=== PATIENT | male | born 1930 | race Caucasian/White ===

== ENCOUNTER 2017-03-15 12:14 | Inpatient (IN) | payer MEDICARE ==
[~2017-03-15] VITALS: Ht 177.8 cm; Wt 105.2 kg
[~2017-03-15 12:14] MED LIST: CATAPRES0.2 MG PO; CIPRO250 M1 PO; HYDROCHLOROTH12.5 M1 PO; LISINOPRIL; MINIPRIN81 MG PO; PRINIVIL20 MG PO; ULTRAM 50MG TAB50 MG PO; ZANTAC 150MG T150 M1 PO
[2017-03-15 12:21] VITALS: BP 189/89
[2017-03-15] MEDS ORDERED: LASIX 20 MG TAB20 MG PO (12:25)
[2017-03-15] MEDS ORDERED: COREG6.25 MG PO (12:25)
[2017-03-15] MEDS ORDERED: TURMERIC COMPL1 EACH PO (12:26)
[2017-03-15] MEDS ORDERED: HYDRALAZINE 2525 MG PO (12:26)
[2017-03-15] MEDS ORDERED: CENTRUM SILVER1 EAC4 PO (12:26)
[2017-03-15] MEDS ORDERED: ASPIRIN81 M2 PO (12:27)
[2017-03-15] MEDS ORDERED: VITAMIN D2000 UNI2 PO (12:27)
[2017-03-15 12:41] LABS: ABSOLUTE BASOPHILS 0.1 thou/uL (0.0-0.2); ABSOLUTE EOSINOPHILS 0.6 thou/uL (0.0-0.7); ABSOLUTE LYMPHOCYTES 5.6 thou/uL (0.8-5.3); ABSOLUTE MONOCYTES 1.1 thou/uL (0.0-1.2); ABSOLUTE NEUTROPHILS 6.6 thou/uL (1.6-8.1); BASOPHILS 0.7 %; HEMATOCRIT 40.6 % (42.0-52.0); HEMOGLOBIN 13.3 gm/dL (14.0-18.0); MCH 29.4 pg (26.0-34.0); MCHC 32.8 g/dL (28.0-37.0); MCV 89.7 fL (80.0-100.0); MONOCYTES 7.7 %; MPV 9.1 fl. (7.2-11.1); NUCLEATED RBCS 0 /100WBC; PLATELET COUNT* 179 thou/uL (150-400); POLYS 47.6 %; RBC 4.53 mil/uL (4.50-6.00); RDW-CV 14.4 % (10.5-14.5)
[2017-03-15 12:50] LABS: ANION GAP 11 mmol/L (7-16); BUN 23 mg/dL (7-18); CALCIUM 8.8 mg/dL (8.5-10.1); CHLORIDE 101 mmol/L (98-107); CO2 25 mmol/L (21-32); CREATININE 1.3 mg/dL (0.6-1.3); GLUCOSE 114 mg/dL (70-99); POTASSIUM 4.2 mmol/L (3.5-5.1); SODIUM 137 mmol/L (136-145)
[2017-03-15 12:53] LABS: APTT 23.2 Seconds (25.0-31.3); PROTIME 9.9 Seconds (9.20-11.50)
[2017-03-15 13:09] LABS: ALKALINE PHOSPHATASE 88 U/L (46-116); CK-MB MASS 2.5 ng/mL (<0.5-3.6); LIPASE 266 U/L (73-393); MAGNESIUM 1.8 mg/dL (1.8-2.4); NT-PRO BRAIN NAT PEPTIDE 732 pg/mL (<300); SGOT 25 U/L (15-37); SGPT 35 U/L (30-65); TOTAL BILIRUBIN 0.6 mg/dL (<0.1-1.0); TOTAL PROTEIN 7.3 g/dL (6.4-8.2); TROPONIN-I LEVEL <0.06 ng/mL (<0.06)
[2017-03-15 14:00] VITALS: BP 175/73
[2017-03-15 15:27] VITALS: BP 163/91
[2017-03-15 17:30] VITALS: BP 149/67
--- NOTE | 2017-03-15 19:48 | NUR ---
pt arrived to room 222 at approx 1600. pt tracing sb on tele monitor. BP elevated, all other vss. Pt denies chest pain. home meds restarted. pt on 2l o2, was taken off for a short time and sat was low 90's. pt placed back on 2l. lungs wheezy , pt given dose of lasix. pt a/o x4, very AMBLER. up ad pearl in room. uses cane at home. pt uses call light approprialty. report given to Rajan THAYER.
[2017-03-15 20:00] VITALS: BP 142/58
[2017-03-16] VITALS: BP 150/63
[2017-03-16 00:33] LABS: HEMATOCRIT 40.8 % (42.0-52.0); HEMOGLOBIN 13.2 gm/dL (14.0-18.0); MCH 29.4 pg (26.0-34.0); MCHC 32.5 g/dL (28.0-37.0); MCV 90.6 fL (80.0-100.0); MPV 8.9 fl. (7.2-11.1); RBC 4.5 mil/uL (4.50-6.00); RDW-CV 14.3 % (10.5-14.5); WBC 14.1 thou/uL (4.0-11.0)
[2017-03-16 01:05] LABS: ANION GAP 9 mmol/L (7-16); BUN 21 mg/dL (7-18); CALCIUM 8.9 mg/dL (8.5-10.1); CHLORIDE 100 mmol/L (98-107); CO2 29 mmol/L (21-32); CREATININE 1.4 mg/dL (0.6-1.3); GLUCOSE 159 mg/dL (70-99); MAGNESIUM 1.7 mg/dL (1.8-2.4); POTASSIUM 4.2 mmol/L (3.5-5.1); SODIUM 138 mmol/L (136-145); TROPONIN-I LEVEL <0.06 ng/mL (<0.06)
--- NOTE | 2017-03-16 03:14 | NUR ---
RESTING THROUGHOUT NIGHT. CONT. TO BERNADINE IN 40S ON MONITOR. DR AWARE. CONT. TO MONITOR RESP STATUS. DENIES ANY COMPLAINTS OF PAIN OR DISCOMFORT, NO SIGN OF DISTRESS AT THIS TIME. BED IN LOW POSITION, CALL LIIGHT WITHIN REACH. BED ALARM ON. WILL CONT. WITH CURRENT PLAN OF CARE AT THIS TIME.
[2017-03-16 04:00] VITALS: BP 137/65
[2017-03-16 08:00] VITALS: BP 163/80
--- NOTE | 2017-03-16 11:49 | EKG ---
[place] [address] ELECTROCARDIOGRAM REPORT Name: DONNAAZIZA Lan Room: [address] ADM IN .R.#: [id number] Admission: 03/15/17 Attend Phys: Matt Gallegos, Discharge: Date of : [birth year] Report #: [id number] THIS REPORT FOR: //name// 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 CEBALLOS : 1930 Requested By: Umesh Guardado Order Number: [id number] MD: Asa Rene Measurements Intervals [place] Rate: 50 P: -6 DC: 165 QRS: -54 QRSD: 144 T: 2 QT: 493 QTc: 450 Interpretive Statements Sinus rhythm RBBB and LAFB Compared to ECG 03/17/2016 16:32:37 Sinus arrhythmia no longer present Short DC interval no longer present Electronically Signed On 03-16-2017 11:48:46 CLEANING PROFESSIONAL by Asa Rene [email or web address] <ELECTRONICALLY SIGNED> By: Asa Rene MD, [facility] 03/16/17 1148 1219 1219 Asa Rene MD, [facility] /EPI
--- NOTE | 2017-03-16 11:51 | EKG ---
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25 : 1930 Requested By: Umesh Guardado Order Number: [id number] Reading MD: Asa Rene Measurements Intervals [place] Rate: 49 P: 47 LA: 175 QRS: -59 QRSD: 144 T: -20 QT: 600 QTc: 542 Interpretive Statements Sinus bradycardia RBBB and LAFB Compared to ECG 03/17/2016 16:32:37 Sinus arrhythmia no longer present Short LA interval no longer present Electronically Signed On 03-16-2017 11:51:13 SALAD CHEF by Asa Rene [email or web address] <ELECTRONICALLY SIGNED> By: Asa Rene MD, [facility] 03/16/17 1151 0902 0902 Asa Rene MD, [facility] /EPI
--- NOTE | 2017-03-16 11:59 | NUR ---
ASSUMED PT CARE AT 0730, FULL ASSESMENT DONE CHARTED. PT A/O X4, DENIES CHEST PAIN, ON 2L O2 SATS MID 90'S, PT TOOK 02 OFF TO AMBULATE AND DROPPED TO 91%, PT PLACED BACK ON 2L, LUNGS DIM/COURSE. PTS BP 163/80, HR IN THE 40'S. COREG HELD. ALL OTHER VSS, SB ON THE MONITOR. FALL PRECATUIONS IN PLACE, WILL CONTINUE WITH PLAN OF CARE.
[2017-03-16 12:23] VITALS: BP 144/54
[2017-03-16 16:13] VITALS: BP 128/49
[2017-03-16 20:00] VITALS: BP 140/70
[2017-03-17] VITALS (17 sets, daily range): BP systolic 140–179; BP diastolic 58–93
--- NOTE | 2017-03-17 03:46 | NUR ---
RESTING THROUGHOUT NIGHT. DENIES COMPLAINTS OF PAIN OR DISCOMFORT. NO SIGN OF DISTRESS. CONT. SR ON MONITOR. WILL PROCEED WITH PLAN OF CARE AT THIS TIME.
[2017-03-17 04:40] LABS: HEMATOCRIT 38.6 % (42.0-52.0); HEMOGLOBIN 12.7 gm/dL (14.0-18.0); MCH 29.4 pg (26.0-34.0); MCHC 32.8 g/dL (28.0-37.0); MCV 89.7 fL (80.0-100.0); MPV 10.1 fl. (7.2-11.1); RBC 4.31 mil/uL (4.50-6.00); RDW-CV 14.4 % (10.5-14.5)
[2017-03-17 05:26] LABS: ANION GAP 10 mmol/L (7-16); BUN 41 mg/dL (7-18); CALCIUM 8.7 mg/dL (8.5-10.1); CHLORIDE 101 mmol/L (98-107); CO2 28 mmol/L (21-32); CREATININE 1.8 mg/dL (0.6-1.3); GLUCOSE 156 mg/dL (70-99); NT-PRO BRAIN NAT PEPTIDE 1384 pg/mL (<300); POTASSIUM 4.1 mmol/L (3.5-5.1); SODIUM 139 mmol/L (136-145); TROPONIN-I LEVEL <0.06 ng/mL (<0.06)
--- NOTE | 2017-03-17 13:59 | 2DMMODE ---
[place] [address] 2 D/M-MODE ECHOCARDIOGRAM Name: AZIZA THOMPSON Room: [address] IN [facility]#: [id number] Admission: 03/15/17 Attend Phys: Matt Tolentino Discharge: Date of : [birth year] Date of Service: 03/17/17 1358 Report #: [id number] THIS REPORT FOR: //name// APPROVED REPORT Study performed: 03/17/2017 10:42:59 EXAM: Comprehensive 2D, Doppler, and color-flow Echocardiogram Patient Location: In-Patient Room #: 222 Status: routine BSA: 2.18 HR: 50 bpm BP: 152/72 mmHg Other Information Study Quality: Good Indications Chest Pain 2D Dimensions LVEF(%): 70.07 (>50%) IVSd: 13.83 (7-11mm) LVOT Diam: 20.92 (18-24mm) LVDd: 46.60 mm PWd: 11.87 (7-11mm) Ascending Ao: 31.45 (22-36mm) LVDs: 28.18 (25-40mm) Aortic Root: 30.31 mm Hanson's LVEF: 70.07 % Volumes Left Atrial Volume (Systole) LA ESV Index: 37.00 mL/m2 Aortic Valve AoV Peak Aki.: 3.85 m/s AO Peak Gr.: 59.29 mmHg LVOT Max P.45 mmHg AO Mean Gr.: 35.48 mmHg LVOT Mean P.29 mmHg LVOT Max V: 1.17 m/s AO V2 VTI: 89.62 cm LVOT Mean V: 0.68 m/s LINDSAY (VTI): 1.01 cm2 LVOT V1 VTI: 26.36 cm Mitral Valve MV Decel. Time: 207.19 ms MV PHT: 60.09 [place] [address] 2 D/M-MODE ECHOCARDIOGRAM Name: AZIZA THOMPSON Room: [address] IN .R.#: [id number] Admission: 03/15/17 Attend Phys: Matt Tolentino Discharge: Date of : [birth year] Date of Service: 03/17/17 1358 Report #: [id number] MVA (PHT): 3.66 cm2 TDI Medial E' Aki.: 0.13 m/s Lateral E' Aik.: 0.11 m/s Pulmonary Valve PV Peak Aki.: 1.46 m/s PV Peak Gr.: 8.50 mmHg Tricuspid Valve TR Peak Gr.: 40.36 mmHg RVSP: 45.36 mmHg Left Ventricle The left ventricle is normal size. There is normal LV segmental wall motion. Mild concentric left ventricular hypertrophy. Left ventricular systolic function is normal. The left ventricular ejection fraction is within the normal range. LVEF is 55-60%. The left ventricular diastolic function is normal. Right Ventricle The right ventricle is normal size. The right ventricular systolic function is normal. Atria Left atrium is moderately dilated. The right atrium size is normal. Aortic Valve Aortic valve is moderately calcified. Trace aortic regurgitation. Moderate to severe aortic stenosis. Mitral Valve The mitral valve is normal in structure. Trace mitral regurgitation. No evidence of mitral valve stenosis. Tricuspid Valve The tricuspid valve is normal in structure. Moderate tricuspid regurgitation. The RVSP is __55 mmHg. Pulmonic Valve The pulmonary valve is normal in structure. Mild to moderate pulmonic regurgitation. Great Vessels The aortic root is normal in size. IVC is normal in size and collapses with >50% [place] [address] 2 D/M-MODE ECHOCARDIOGRAM Name: AZIZA THOMPSON Room: [address] IN [facility]#: [id number] Admission: 03/15/17 Attend Phys: Matt Tolentino Discharge: Date of : [birth year] Date of Service: 03/17/17 1358 Report #: [id number] Pericardium There is no pericardial effusion. <Conclusion> Mild concentric left ventricular hypertrophy. LVEF is 55-60%. Left atrium is moderately dilated. Moderate to severe aortic stenosis. Moderate tricuspid regurgitation. The RVSP is __55 mmHg. <ELECTRONICALLY SIGNED> By: Nigel Brown MD, [facility] 03/17/17 1358 1358 1358 Nigel Brown MD, FAC /INF
--- NOTE | 2017-03-17 14:09 | NUR ---
CM ASSESSMENT: Pt is A&O. Resides at home alone. Independendt with ADLS, continues to cook, clean and drive. Dtr in room and assists Pt as needed. Pt goes to the [facility] daily for one meal. Pt uses a cane for mobility. Pt wears hearing aids. No home o2. Pt also has a life alert. No hx of HH or SNF. Cardiology consult pending. Goal is to return home once medically stable. No needs anticipated. Following.
[2017-03-17 15:00] LABS: BE -1.3 mmol/L (-2 to +3); HCO3 23.7 mmol/L (22.0-26.0); PCO2 40.8 mmHg (35.0-45.0); PO2 63.7 mmHg (75.0-100.0); pH 7.382 (7.340-7.450)
[2017-03-17 15:03] LABS: BE -0.2 mmol/L (-2 to +3); HCO3 25.6 mmol/L (22.0-26.0); PCO2 VENOUS 46.2 mmHg (41.0-51.0); PO2 VENOUS 33.3 mmHg (35.0-45.0)
--- NOTE | 2017-03-17 16:59 | CARD ---
[address] [address] CARDIAC CATH REPORT Name: AZIZA THOMPSON Room: [address] IN .R.#: [id number] Admission: 03/15/17 Attend Phys: Matt Gallegos, Discharge: Date of : [birth year] Report #: [id number] THIS REPORT FOR: //name// APPROVED REPORT Patient Details Patient Status: In-Patient Room #: 222 The patient is a 86 year-old male Event Personnel Nigel Brown Factory Manager, Yi Joe RN Neon Sign Installer, Avila Lopez (R) Monitor, Koki Esteban Scrub Procedures Performed cardiac cathRight and Left Heart Cath w/or w/o Coronarie Indication Dyspnea, Valvular heart disease, Chest pain, Murmur Risk Factors Arterial Hypertension Procedure Narrative The patient was brought electively to the Cardiac Catheterization Laboratory and was prepped and draped in a sterile manner. The right femoral was infiltrated with 1% Lidocaine subcutaneous anesthesia. A Right Heart Catheterization was performed with a 7 Fr. Vermillion-Sumeet catheter and pressure were recorded. Cardiac outputs were obtained by the Thermal Dilution method. A 7 fr sheath was inserted into the right femoral artery. Coronary angiography was performed using coronary diagnostic catheters. The right coronary system was accessed and visualized with a Diagnostic catheter. The left coronary system was accessed and visualized with a Diagnostic catheter. The left ventricle was accessed and visualized with a Diagnostic catheter. Left ventricular/Aortic Valve gradient assessed via catheter pullback. Left ventriculogram was performed in VIRK projection. An aortogram of the ascending aorta was performed. Pre-demployment femoral angiogram was performed . Closure device was deployed with a 6 Fr Mynx. The patient tolerated the procedure well and there were no complications associated with the procedure. There was no hematoma. Aortic root injection was performed. Aortic valve was crossed with a glidewire inserted through a jr4 catheter. Aortic valve gradient measured with a dual [place] [address] CARDIAC CATH REPORT Name: AZIZA THOMPSON Room: [address] IN [facility]#: [id number] Admission: 03/15/17 Attend Phys: Matt Gallegos, Discharge: Date of : [birth year] Report #: [id number] Intraoperative Conscious Sedation Sedation start time: 14:36 Case end Time: 15:26 Fentanyl 50 mcg Versed 4 mg Fluoro Time: 7.0 minutes Dose: DAP 90359 cGycm2 1001 mGy Contrast Type and Amount: Visipaque 65 ml Coronary Angiography The patient's coronary anatomy is right dominant. [place] Artery Percent Stenosis Left Main: 0 % Prox LAD: 0 % Mid/Distal LAD: 50 % Circumflex: 30 % RCA: 40 % Ramus: % Left Ventriculography The left ventricle is normal in size with normal contractility. The left ventricular ejection fraction is estimated to be 50-55%. Left ventricular wall motion abnormalities are not present. There is no mitral insufficiency. Mild aortic insufficiency noted Hemodynamics The right atrial mean pressure is 8 mmHg. The right ventricular pressure is 55/8 mmHg. The pulmonary artery pressure is 55/12 mmHg with a mean of 28 mmHg. The mean pulmonary capillary wedge pressure is 16 mmHg. The aortic pressure is 146/60 mmHg with a mean of 90 mmHg. The left ventricular pressure is 168/14 mmHg with a mean of mmHg. The left ventricular end diastolic pressure is 16 mmHg. Pullback from the left ventricle to the aorta revealed a 30 mm gradient across the aortic valve. PaO2 saturation is 63 %. Arterial saturation is 91 %. The cardiac output using thermo method is 5.20 L/min. The peak gradient across the aortic valve is 30 mmHg. The aortic valve area is 1.0-1.1 cm2. Conclusion 1. mild cad 2. mild aortic stenosis Recommendations Aggressive Medical Therapy <ELECTRONICALLY SIGNED> By: Nigel Brown MD, FACC 03/17/178 57 57Nigel Brown MD, FACC /INF
--- NOTE | 2017-03-17 18:30 | NUR ---
ASSUMED PT CARE AROUND 1415. PT WENT TO AWNING ERECTOR. POST CATH VITALS TAKEN. RIGHT GROIN SITE NO BLEEDING. SMALL HEMATOMA DIME SIZE. PRESSURE HELD. BRUISING PRESENT. PT DENIES PAIN. PT COMPLIANT WITH POST CATH PRECAUTIONS.
--- NOTE | 2017-03-18 02:59 | NUR ---
PT ALERT ORIENTED. [place]EL[place] WEARS ANITA HEARING AIDS. PT STATES THEY DON'T SEEM TO MAKE MUCH DIFFERENCE ANYMORE. R GROIN SITE WITH SMALL DIME SIZE HEMATOMA. BRUSING PRESENT. DENIES NUMBNESS OR TINGLING IN R FOOT. WILL CONTINUE TO MONITOR.
[2017-03-18 04:00] VITALS: BP 141/62
[2017-03-18 05:14] LABS: HEMATOCRIT 37.1 % (42.0-52.0); HEMOGLOBIN 12.1 gm/dL (14.0-18.0); MCH 29.5 pg (26.0-34.0); MCHC 32.5 g/dL (28.0-37.0); MCV 90.6 fL (80.0-100.0); RBC 4.09 mil/uL (4.50-6.00); RDW-CV 14.4 % (10.5-14.5); WBC 23.7 thou/uL (4.0-11.0)
[2017-03-18 05:31] LABS: ALBUMIN 3.5 g/dL (3.4-5.0); CALCIUM 8.3 mg/dL (8.5-10.1); CREATININE 1.6 mg/dL (0.6-1.3); POTASSIUM 4.4 mmol/L (3.5-5.1); TOTAL BILIRUBIN 0.9 mg/dL (<0.1-1.0); TOTAL PROTEIN 6.1 g/dL (6.4-8.2)
[2017-03-18 07:50] VITALS: BP 142/64
--- NOTE | 2017-03-18 08:37 | NUR ---
PT 99% ON 2L NC. TITRATED TO ROOM AIR SATTING AT 96% WILL CONTINUE TO MONITOR. CARDIOLOGY NOTIFIED THAT CARVEDILOL HAS BEEN HELD FOR HR IN 40'S -50. CARDIOLOGY TO DC MEDICATION.
--- NOTE | 2017-03-18 09:47 | NUR ---
ASSUMED PT CARE 0730. PT A/O X'S 4. VSS. HR IN 40'S. CARVEDILOL DC'D PER PHARMACISTS. PT REPROTS PAIN IN CHEST DURING DEEP INSPIRATION. PT UP AD TING. PT REPORTS VOIDING LARGE AMOUNTS. MEDICATIONS ADMININSTERED PER APR. RIGHT GROIN SITE ASSESSED. NO HEMATOMA. DIME SIZED AMOUNT OF BLOOD. BRUISING. PHARMACISTS NOTIFIED OF DIME SIZE HEMATOMA THAT WAS PRESENT YESTERDAY AND NOT PRESENT TODAY. PT UP AD TING WITH ASSISTANCE OF SUDHA. WILL CONTINUE PLAN OF CARE.
[2017-03-18 11:58] VITALS: BP 123/53
--- NOTE | 2017-03-18 12:26 | NUR ---
RECIEVED O.T. EVAL AND CHART REVIEWED. PER NURSE AND NURSING NOTES, PT. IS UP AD TING. HE SAYS HE SHOWERS, SHAVES, AND GOES THE BATHROOM ON HIS OWN. HE DENIES ANY O.T. NEEDS AT THIS TIME. NO O.T. SERVICES ARE INDICATED AT THIS TIME.
--- NOTE | 2017-03-18 15:21 | CON ---
[address] [address] CONSULTATION Name: AZIZA THOMPSON Room: [address] IN .R.#: [id number] Admission: 03/15/17 Attend Phys: Matt Gallegos, Discharge: Date of : [birth year] Report #: [id number] THIS REPORT FOR: //name// CC: Anamaria Gallegos DATE OF SERVICE: 03/16/2017 PRIMARY PASTE MIXER LIQUID: Nigel Brown MD [facility] PRIMARY CARE PHYSICIAN: Anamaria Lechuga DO CHIEF COMPLAINT: Chest pain and shortness of breath. HISTORY OF PRESENT ILLNESS: The patient is an 86-year-old man who was evaluated as an outpatient for shortness of breath by Dr. Brown, presented with a resting episode of chest discomfort lasted about an hour in the middle of night last night. He presented to the Emergency Department. He has a right bundle-branch block. His cardiac troponin levels are normal and he is asymptomatic for chest pain. He has been short of breath and having some mild chest pain for about a year or so. He denies palpitations. He presents in sinus rhythm. He denies orthopnea or PND. He has minimal edema complaints. He has no documented history of heart disease, but has a prominent murmur on physical examination. He has not yet had a chance to have the echo test that Dr. Brown had ordered. PAST MEDICAL HISTORY: Significant for the following: Hypertension, right bundle-branch block, weakness. PAST SURGICAL HISTORY: Cholecystectomy. SOCIAL HISTORY: Not a smoker, quit about 15 years ago. HOME MEDICATIONS: Lisinopril 20 mg daily, ranitidine 150 mg p.o. b.i.d., Coreg 3.125 mg p.o. b.i.d., Lasix 10 mg daily, hydralazine 10 mg p.o. t.i.d., baby aspirin 81 mg daily. ALLERGIES: No known drug allergies. REVIEW OF SYSTEMS: GASTROINTESTINAL: No nausea or vomiting. CARDIOVASCULAR: Positive chest pain, positive shortness of breath, positive dyspnea on exertion. No edema, no orthopnea, [place] [address] CONSULTATION Name: AZIZA THOMPSON Room: [address]#: [id number] Admission: 03/15/17 Attend Phys: Matt Gallegos, Discharge: Date of : [birth year] Report #: [id number] SKIN: No edema. No rashes. GENERAL: No fevers or chills. PULMONARY: No history of asthma or emphysema. RENAL: No history of kidney failure. ENDOCRINE: He is not known to be a diabetic. PHYSICAL EXAMINATION: VITAL SIGNS: Blood pressure is 160/80, heart rate is 47, sinus bradycardia. Temperature is 36.6. GENERAL: Elderly male. He is alert, oriented. He is hard of hearing. HEENT: Eyes: EOMs intact. No facial asymmetry. NECK: Supple. There is no jugular venous distention. Upstrokes are mildly reduced. CARDIOVASCULAR: Regular. There is a grade 3/6 systolic murmur. LUNGS: Clear to auscultation. ABDOMEN: Nontender. EXTREMITIES: There is no peripheral edema. SKIN: Warm and dry. IMPRESSION: 1. Chest pain. He has ruled out for an acute myocardial infarction, but certainly he has a nondiagnostic ECG and symptoms compatible with angina and numerous cardiovascular risk factors. If his echocardiogram does not show critical aortic valve stenosis, he will be evaluated with a pharmacologic stress test. We will continue with aspirin. 2. Murmur. An echocardiogram has been ordered. 3. Dyspnea. This is multifactorial. He does not present with heart failure, but again he may have significant aortic valvular disease. 4. Right bundle-branch block. His heart rate is bradycardic, but he is on a low dose of beta rocio. We will monitor this. <ELECTRONICALLY SIGNED> By: Asa Rene MD, FACC 03/18/17 1521 1108 1820Asa Rene MD, FACC /nt
[2017-03-18 16:59] VITALS: BP 125/56
--- NOTE | 2017-03-18 18:22 | NUR ---
ASKED PT FOR ADVIL. NO ORDER RECEIVED. PT REPORTS KNEE PAIN IMPROVED. PT MADE NPO AFTER MIDNIGHT. PER CARDIOLOGY PT MAY NEED PACEMAKER HAS A 2:1 HEART BLOCK.
[2017-03-19] VITALS (11 sets, daily range): BP systolic 126–168; BP diastolic 61–90
--- NOTE | 2017-03-19 02:03 | NUR ---
PT ALERT ORIENTED. TELEMETRY SHOWS SB PVC VS 2ND DEGREE HB TYPE 2. HR 40S-60. NPO SINCE MN FOR POSSIBLE PACE MAKER. R GROIN SITE BRUSED. UP AD TING. WILL CONTINUE TO MONITOR.
--- NOTE | 2017-03-19 04:51 | NUR ---
PT STATED HE FELT DIZZY AND WAS MADE A FALL RISK. NPO SINCE MN FOR POSSIBLE PACEMAKER.
[2017-03-19 05:44] LABS: CALCIUM 8.4 mg/dL (8.5-10.1); CREATININE 1.6 mg/dL (0.6-1.3); POTASSIUM 4.2 mmol/L (3.5-5.1)
--- NOTE | 2017-03-19 12:49 | EKG ---
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
--- NOTE | 2017-03-19 15:23 | NUR ---
ASSUMED PT CARE AT 0730, FULL ASSESMENT DONE CHARTED. PT A/O X4, VERY [place], VSS THIS AM, 2ND DEGREE HEART BLOCK ON MONITOR. SPOKE TO DR ORTA ALONG WITH HIS DAUGHTER THIS AM. PT TAKEN FOR PACEMAKER PLACEMENT AT APPROX 0940, CONSENT SIGNED. PT RETURNED FROM BUSINESS LIBRARIAN AT APPROX 1230, PT DENIES PAIN, IS DROWSY, USING URINAL. INSTRUCTED PT TO KEEP LEFT ARM DOWN, PLACED SLING ON LEFT ARM. VITALS OBTAINED, REFER TO CHARTING. MEDS GIVEN PER APR. PT INSTRUCTED BEDREST UNTIL 0800 T[address]ROW. FALL PRECATUIONS IN PLACE. CALL LIGHT IN REACH. PTS DAUGHTERS REMIAN AT BEDSIDE. WILL CONTINUE WITH PLAN OF CARE.
--- NOTE | 2017-03-19 17:32 | CARD ---
[address] [address] CARDIAC CATH REPORT Name: AZIZA THOMPSON Room: [address] IN ..#: [id number] Admission: 03/15/17 Attend Phys: Matt Gallegos, Discharge: Date of : [birth year] Report #: [id number] THIS REPORT FOR: //name// APPROVED REPORT Patient Status: In-Patient Room #: Exam: Insertion of Dual Chamber Permanent Pacemaker and cardioversion Indications: 2nd Degree Mobitz II, atrial fibrillation The patient is a 86 year-old male with a history of Dizziness and vertigo. Implanted Devices: dual chamber biotronic pacemaker generator and ventricular and atrial active fixation leads Procedure The patient underwent informed consent. We discussed the details of the procedure including the risks, which include, but not limited to bleeding, infection, vascular damage, cardiac perforation, and pneumothorax. He understood these risks and was willing to proceed. As such, he was brought to the EP/Cardiac Catheterization laboratory in a fasting and sedated state and prepped and draped in a sterile fashion, received IV antibiotics prior to initiation of the procedure and a venogram was performed showing patency of the left axillary vein. The patient underwent conscious sedation, with no related complications. The patient was brought to the EP/Cardiac Catheterization laboratory and the left chest and shoulder were prepped and draped in a sterile manner. During this case, Fluoroscopy and visipaque 20cc were used for imaging. The left subclavian region was infiltrated with 2% Lidocaine subcutaneous anesthesia. A transverse incision was made in the left upper chest cavity. The subcutaneous pocket was formed via blunt dissection. Percutaneous venous access was achieved and an introducer sheath was inserted into the left Subclavian vein. Sheaths were positions using the modified Seldinger technique Through the introducer sheaths the atrial and ventricular lead wires were positioned in the right atrial appendage and right ventricular apex respectively. Utilizing fluoroscopic guidance, the atrial and ventricular lead wires were advanced over the wires and [place] [address] CARDIAC CATH REPORT Name: AZIZA THOMPSON Room: [address] IN [facility].#: [id number] Admission: 03/15/17 Attend Phys: Matt Gallegos, Discharge: Date of : [birth year] Report #: [id number] and right ventricle respectively. Capturing and sensing thresholds were verified. After moderate sedation, the patient was cardioverted with 200 J from atrial fibrillation to sinus rhythm with mobitz II block Electrode Parameters P Wave: 3.9 mv R Wave: 12.5 mv Atrial Threshold: 0.6 v Ventricular Threshold: 0.8 v Atrial Resistance: 487 Ventricular Resistance: 721 Dual Chamber The atrial and ventricular leads were then secured using 0 silk sutures. The subcutaneous pocket was irrigated with ancef antibiotic solution.The atrial and ventricular leads were attached to the appropriate receptacles on the pulse generator and set screws firmly tightened to insure adequate contact and stability. The lead and pulse generator were placed into the subcutaneous pocket. Sharp and sponge counts were confirmed to be correct. At this time the pocket was closed subcutaneously with a 0 Vicryl and the skin was closed with a 4.0 Vicryl. The operative site was dressed in sterile fashion with skin affix and the patient was transferred to the floor in stable condition. Complications The patient tolerated the procedure well and there were no complications associated with the procedure. Findings Specimens Removed: No Estimated Blood Loss: 15 cc Conclusion 1. successful cardioversion of atrial fibrillation 2. placement of a permanent non MRI compatible dual chamber pacemaker and leads <ELECTRONICALLY SIGNED> By: Nigel Brown MD, [facility] 03/19/17 1731 173 [id number] Brown MD, FACC /INF
[2017-03-20] VITALS: BP 161/84
[2017-03-20 04:00] VITALS: BP 163/91
--- NOTE | 2017-03-20 04:46 | NUR ---
ASSUMED CARE OF PT AT 1930, NURSING ASSESSMENT COMPLETED AT START OF SHIFT, PT VOICED NO CONCERNS, TELE MONITOR IN PLACE,TRACING AV PACED, HOURLY ROUNDING COMPLETED, PT WEARING SLING ON LEFT ARM, PT EDUCATED ON IMPORTANCE OF REMAINING BEDREST UNTIL 0800, PT VERBALIZED UNDERSTANDING. CALL LIGHT WITHIN REACH.
[2017-03-20 08:08] VITALS: BP 160/94
--- NOTE | 2017-03-20 11:29 | EKG ---
[place] [address] ELECTROCARDIOGRAM REPORT Name: DONNAAZIZA Lan Room: [address] ADM IN M.R.#: [id number] Admission: 03/15/17 Attend Phys: Matt Gallegos, Discharge: Date of : [birth year] Report #: [id number] THIS REPORT FOR: //name// [facility] Test Date: 2017-03-20 Test Time: 08:29:42 Pat Name: AZIZA THOMPSON Department: Room: [address] Gender: M General Road Foreman: : 1930 Requested By: Nigel Brown Order Number: [id number] Rustam MD: Asa Rene Measurements Intervals [place] Rate: 91 P: DC: 169 QRS: -71 QRSD: 151 T: 103 QT: 429 QTc: 528 Interpretive Statements A-V dual-paced complexes w/ some inhibition No further analysis attempted due to paced rhythm Compared to ECG 03/19/2017 08:46:53 Atrial fibrillation no longer present Left anterior fascicular block no longer present Right bundle-branch block no longer present Electronically Signed On 03-20-2017 11:29:30 FAMILY SERVICE CASEWORKER by Asa Rene [email or web address] <ELECTRONICALLY SIGNED> By: Asa Rene MD, FAC 03/20/17 1129 8 8 Asa Rene MD, FAC /EPI
--- NOTE | 2017-03-20 11:29 | EKG ---
[place] [address] ELECTROCARDIOGRAM REPORT Name: DONNAAZIZA Lan Room: [address] ADM IN M.R.#: [id number] Admission: 03/15/17 Attend Phys: Matt Gallegos, Discharge: Date of : [birth year] Report #: [id number] THIS REPORT FOR: //name// [facility] Test Date: 2017-03-20 Test Time: 08:28:46 Pat Name: AZIZA THOMPSON Department: Room: [address] Gender: M Tire Mounter: : 1930 Requested By: Nigel Brown Order Number: [id number] Rustam MD: Asa Rene Measurements Intervals [place] Rate: 89 P: ID: [id number] QRS: -72 QRSD: 149 T: 100 QT: 440 QTc: 536 Interpretive Statements A-V dual-paced complexes w/ some inhibition No further analysis attempted due to paced rhythm Compared to ECG 03/19/2017 08:46:53 Atrial fibrillation no longer present Left anterior fascicular block no longer present Right bundle-branch block no longer present Electronically Signed On 03-20-2017 11:29:22 FORMULA ROOM WORKER by Asa Rene [email or web address] <ELECTRONICALLY SIGNED> By: Asa Rene MD, FAC 03/20/17 1129 7 7 Asa Rene MD, FAC /EPI
[2017-03-20] MEDS ORDERED: PREDNISONE 10 M10 MG PO (12:04)
[2017-03-20] MEDS ORDERED: LEVAQUIN 250 M250 MG PO (12:05)
[2017-03-20] MEDS ORDERED: PROTONIX40 M1 PO (12:06)
[2017-03-20 12:09] VITALS: BP 120/72
--- NOTE | 2017-03-20 12:53 | NUR ---
Pt discharging to home today with Naseem BUI. Faxed dc orders. Dtr in room and will provide transportation home.
== END 2017-03-20 13:46 | disposition home health service (06) | DRG 242 ==
LOC: M.ERS 12:14 → M.2W 14:40 → M.TBA-ER 14:40 → M.2W 15:38
PROVIDERS: Family Medicine; Internal Medicine; Internal Medicine Cardiovascular Disease; ADMIT Family Medicine
PROC: B2151ZZ Fluoroscopy of Left Heart using Low Osmolar Contrast (ICD-10-PCS; principal; 2017-03-17)
PROC: 4A023N7 Measurement of Cardiac Sampling and Pressure, Left Heart, Percutaneous Approach (ICD-10-PCS; principal; 2017-03-17)
PROC: B2111ZZ Fluoroscopy of Multiple Coronary Arteries using Low Osmolar Contrast (ICD-10-PCS; principal; 2017-03-17)
PROC: 02H63JZ Insertion of Pacemaker Lead into Right Atrium, Percutaneous Approach (ICD-10-PCS; 2017-03-19)
PROC: 02HK3JZ Insertion of Pacemaker Lead into Right Ventricle, Percutaneous Approach (ICD-10-PCS; 2017-03-19)
PROC: 0JH606Z Insertion of Pacemaker, Dual Chamber into Chest Subcutaneous Tissue and Fascia, Open Approach (ICD-10-PCS; 2017-03-19)
PROC: 5A2204Z Restoration of Cardiac Rhythm, Single (ICD-10-PCS; 2017-03-19)
DX: I44.30 Unspecified atrioventricular block (principal); J18.9 Pneumonia, unspecified organism; I50.33 Acute on chronic diastolic (congestive) heart failure; J44.1 Chronic obstructive pulmonary disease with (acute) exacerbation; R65.10 Systemic inflammatory response syndrome (SIRS) of non-infectious origin without acute organ dysfunction; J44.0 Chronic obstructive pulmonary disease with (acute) lower respiratory infection; I13.0 Hypertensive heart and chronic kidney disease with heart failure and stage 1 through stage 4 chronic kidney disease, or unspecified chronic kidney disease; N39.0 Urinary tract infection, site not specified; I25.119 Atherosclerotic heart disease of native coronary artery with unspecified angina pectoris; I45.10 Unspecified right bundle-branch block; I35.0 Nonrheumatic aortic (valve) stenosis; N18.9 Chronic kidney disease, unspecified; Z82.49 Family history of ischemic heart disease and other diseases of the circulatory system; Z90.49 Acquired absence of other specified parts of digestive tract; Z87.891 Personal history of nicotine dependence; Z79.899 Other long term (current) drug therapy

== ENCOUNTER 2017-03-22 01:32 | Inpatient (IN) | payer MEDICARE ==
[~2017-03-22] VITALS: Ht 172.7 cm; Wt 98.4 kg
[~2017-03-22 01:32] MED LIST changes: +ASPIRIN81 M2 PO; +CENTRUM SILVER1 EAC4 PO; +COREG6.25 MG PO; +HYDRALAZINE 2525 MG PO; +LASIX 20 MG TAB20 MG PO; +LEVAQUIN 250 M250 MG PO; +PREDNISONE 10 M10 MG PO; +PROTONIX40 M1 PO; +TURMERIC COMPL1 EACH PO; +VITAMIN D2000 UNI2 PO
[2017-03-22 01:33] VITALS: BP 148/93
[2017-03-22 02:00] LABS: HEMATOCRIT 35.9 % (42.0-52.0); HEMOGLOBIN 11.9 gm/dL (14.0-18.0); MCH 29.6 pg (26.0-34.0); MCV 89.6 fL (80.0-100.0); NUCLEATED RBCS 0 /100WBC; PLATELET COUNT* 161 thou/uL (150-400); RDW-CV 14.2 % (10.5-14.5); WBC 21.2 thou/uL (4.0-11.0)
[2017-03-22 02:10] LABS: PROTIME 10.2 Seconds (9.20-11.50)
[2017-03-22 02:12] LABS: CALCIUM 8.5 mg/dL (8.5-10.1); CREATININE 1.5 mg/dL (0.6-1.3)
[2017-03-22 02:17] LABS: ALBUMIN 3.3 g/dL (3.4-5.0); TOTAL BILIRUBIN 0.9 mg/dL (<0.1-1.0); TOTAL PROTEIN 6.6 g/dL (6.4-8.2)
[2017-03-22 04:25] LABS: ABSOLUTE LYMPHOCYTES 6.1 thou/uL (0.8-5.3); ABSOLUTE MONOCYTES 2.8 thou/uL (0.0-1.2); ABSOLUTE NEUTROPHILS 12.3 thou/uL (1.6-8.1)
[2017-03-22 04:26] LABS: ANISOCYTOSIS Occasional; PLATELET ESTIMATE ADEQUATE; TOXIC GRANULATION 1+
[2017-03-22 08:42] VITALS: BP 141/65
[2017-03-22 09:45] VITALS: BP 143/77
[2017-03-22 16:00] VITALS: BP 132/74
--- NOTE | 2017-03-22 16:37 | EKG ---
[place] [address] ELECTROCARDIOGRAM REPORT Name: DANIEL THOMPSONN Lan Room: [address] ADM IN .R.#: [id number] Admission: 03/22/17 Attend Phys: Zoie Andersen MD Discharge: Date of : [birth year] Report #: [id number] THIS REPORT FOR: //name// [facility] ED Test Date: 2017-03-22 Test Time: 04:45:12 Pat Name: AZIZA THOMPSON Department: Room: [facility] Gender: M Sampler Pickup: MARK Frank : 1930 Requested By: Abby Caldwell Order Number: [id number] MD: Lai Augustin Measurements Intervals [place] Rate: 88 P: ME: QRS: -48 QRSD: 134 T: 182 QT: 506 QTc: 613 Interpretive Statements Afib/flut and V-paced complexes No further rhythm analysis attempted due to paced rhythm IVCD, consider atypical RBBB LVH with IVCD and secondary repol abnrm Prolonged QT interval Compared to ECG 03/20/2017 08:29:42 Intraventricular conduction delay now present Left ventricular hypertrophy now present Early repolarization now present Prolonged QT interval now present Electronically Signed On 03-22-2017 16:37:47 GOLD RECLAIMER by Lai Augustin [email or web address] <ELECTRONICALLY SIGNED> By: Basilio Augustin MD, [facility] 03/22/17 1637 4 Basilio Augustin MD, [facility] /EPI
--- NOTE | 2017-03-22 19:01 | NUR ---
PT ARRIVE TO THE FLOOR AT 0850. PT VSS AND TRACING A FIB ON THE MONITOR. PT IS A&O BUT FORGETFUL. PT HAS C/O PAIN IN HIS RIGHT GROIN WITH PURPLE BRUISING TO RIGHT THIGH, PELVIS, PENIS, AND SCROTUM. PT PAIN HAS BEEN WELL CONTROLLED WITH PRN IV PAIN MEDICATIONS ORDERED. ARTERIAL AND VENOUS DOPPLER OF BLE DONE AND RESULTS ARE NORMAL AND WERE CALLED TO DR JAMIL. PT URINATING VIA URINAL. PT CURRENTLY RESTING WITH FAMILY AT BEDSIDE. NURSING WILL CONTINUE TO MONITOR.
[2017-03-22 20:00] VITALS: BP 126/66
[2017-03-23] VITALS: BP 140/76
--- NOTE | 2017-03-23 03:42 | NUR ---
DURING CHART CHECK NOTED APIXABAN ORDER DID NOT MATCH PHYSICAN WRITTEN ORDER- ELIQUIS CHANGES MADE DOCUMENTED AT HS ON 03/22 PATIENT RECEIVED 5 MG ENTERED PHYSICIAN ORDER 7.5MG PO BID X 1 WEEK PHYSICIAN TO BE NOTIFIED OF OCCURENCE ROUTINELY IN AM
[2017-03-23 04:00] VITALS: BP 138/77
[2017-03-23 08:00] VITALS: BP 152/80
--- NOTE | 2017-03-23 08:12 | NUR ---
IN AM SPOKE WITH CARDIOLOGY AT [phone] NOTIFYING THAT PATIENT HAD RECEIVED A SMALLER DOSE THAN ORDERED PATIENT WAS MADE AWARE OF MEDICATION EDUCATION WILL NEED TO BE REINFORCED AUTOMOTIVE PARTS COUNTER ASSOCIATE TABBY WAS NOTIFIED PATIENT COMPLAINED OF PAIN DISCOMFORT MULTIPE TIMES DURING SHIFT ORDER OBTAINED INCREASING DOSAGE ON PRN INTERVENTION NON PHARM MANAGEMENT INCLUDED COLD PACKS AND POSITIONING SAFETY INTERVENTIONS CONTINUE REPORT GIVEN ONCOMING NURSE
[2017-03-23 12:00] VITALS: BP 131/65
--- NOTE | 2017-03-23 12:43 | EKG ---
[place] [address] ELECTROCARDIOGRAM REPORT Name: AZIZA THOMPSON Lan Room: [address] ADM IN M.R.#: [id number] Admission: 03/22/17 Attend Phys: Zoie Andersen MD Discharge: Date of : [birth year] Report #: [id number] THIS REPORT FOR: //name// [facility] Test Date: 2017-03-23 Test Time: 10:12:59 Pat Name: AZIZA THOMPSON Department: Room: [address] Gender: M Process Server: [facility] : 1930 Requested By: Basilio Augustin Order Number: [id number] Rustam MD: Lai Augustin Measurements Intervals [place] Rate: 94 P: 105 ID: [id number] QRS: -66 QRSD: 147 T: 107 QT: 414 QTc: 518 Interpretive Statements A-V dual-paced complexes w/ some inhibition No further analysis attempted due to paced rhythm Compared to ECG 03/22/2017 04:45:12 Atrial fibrillation no longer present Intraventricular conduction delay no longer present Left ventricular hypertrophy no longer present Early repolarization no longer present Prolonged QT interval no longer present Electronically Signed On 03-23-2017 12:43:31 AUDITOR APPRAISER by Lai Augustin [email or web address] <ELECTRONICALLY SIGNED> By: Basilio Augustin MD, FACC 03/23/17 1243 1012 1012 Basilio Augustin MD, [facility] /EPI
[2017-03-23 16:20] LABS: HEMATOCRIT 33.5 % (42.0-52.0); MCH 29.8 pg (26.0-34.0); MCHC 32.9 g/dL (28.0-37.0); MCV 90.5 fL (80.0-100.0); MPV 9.3 fl. (7.2-11.1); RBC 3.7 mil/uL (4.50-6.00); RDW-CV 14.3 % (10.5-14.5); WBC 16.4 thou/uL (4.0-11.0)
[2017-03-23 16:29] LABS: CALCIUM 8.2 mg/dL (8.5-10.1); CREATININE 1.2 mg/dL (0.6-1.3); POTASSIUM 4.3 mmol/L (3.5-5.1)
[2017-03-23 16:30] VITALS: BP 119/62
--- NOTE | 2017-03-23 19:28 | NUR ---
ZANDERTNET RESTING IN BED. MULTIPLE IMAGINGS TODAY OF LOWER EXT, ABD, ANG GROIN R/T PAIN AND RECENT BRUISING/SWELLING. VITLA SIGNS STABLE ANDPAITNET IN NO APPARENT DISTRESS AT T HIS TIME. MICHELLE EDUCATED REGARDING TEST RESULTS. APOLINARTEE IS REQUESTING TO DISCHARGE TO HOME ALTHOUGH PATIENT IS VERY FORGET =FUL. ZANDERTTEE HAS COMPLINED OF PAIN WITHOUT ABILITY TO DETERMINE THE SOURCE. TREATED WITH PO MEDICATION. HOURLY ROUNDING COMPLETD FOR PATIENT SAFETY.
[2017-03-23 20:00] VITALS: BP 107/58
[2017-03-24 00:30] VITALS: BP 116/64
[2017-03-24 04:38] VITALS: BP 117/61
[2017-03-24 05:50] LABS: CALCIUM 8.3 mg/dL (8.5-10.1); POTASSIUM 4.2 mmol/L (3.5-5.1)
--- NOTE | 2017-03-24 07:37 | NUR ---
ORDERS OBTAINED FOR MELATONIN Radha LEIVA NOTED FORGETFUL BEHAVIOR IN AM REPOSITIONED THAN WITHIN 30 MINUTES CALLING OUT SAYING HE HAS NOT MOVED COMPLAIN OF DISCOMFORT TO STAFF MEMBER THAN WHEN ASSESSED SHORTLY AFTER STATES HE IS DOING GREAT HE "GOT A SHOT AND FEELS GOOD" HE APPEARS PLEASANT INTERMITTENTLY WITH FUSSY AT SHIFT START FAMILY CONCERNS ADDRESSED DOCUMENTED SAFETY INTERVENTIONS CONTINUE WITHOUT S/SX OF ACUTE DISTRESS REPORT GIVEN TO ONCOMING RN PRN INTERVENTIONS FOR PAIN MANAGEMENT X 2 THIS SHIFT
[2017-03-24 08:00] VITALS: BP 137/75
--- NOTE | 2017-03-24 10:57 | NUR ---
CM ASSESSMENT: Pt is A&O and [place]. Pt recently dc to home on 03/20 with Naseem BUI. Pt normally resides at home alone and is independent with ADLs. Pt was still driving prior to previous hospital stay. Pt uses a cane for mobility. Pt has life alert at home. Discussed dispostion, Pt in agreement with going to skilled, asked that CM speak with his dtr. Spoke with Dalia, she will tour several facilities today and let CM know which one she wants Pt to dc to. Following.
[2017-03-24 12:00] VITALS: BP 105/56; BP 118/64
[2017-03-24 15:00] VITALS: BP 110/61
--- NOTE | 2017-03-24 18:34 | NUR ---
PATIENT RESTING IN BED. UP WITH ASSISTANCE X1 AND WALKER USAGE TODAY. PATIENT REPORTS DECREASED PAIN WITH AMBULATION. LEFT LEG SWELLING AND GROIN HEMATOMA UNCHAGED TODAY. VITAL SIGNS STABLE AND PATIENT IN NO APPARENT SIGNS OF DISTRESS. HOURLKY ROUNDING COMPLETED FOR PATIENT SAFETY. FAMILY HAS REQUESTED TO SPEAK WITH BOTH CASE MANAGEMENT AND PRIMARY PHYSICIAN TOMORROW PRIOR TO DISCHARGE TO ASSESS RESULTS OF TESTING AND BEST CHOICE FOR PATINET MOVING FORWARD.
[2017-03-24 19:50] VITALS: BP 143/78
[2017-03-25 00:30] VITALS: BP 151/59
[2017-03-25 04:30] VITALS: BP 134/70
--- NOTE | 2017-03-25 05:08 | NUR ---
END SHIFT: PT WITH INCREASED CONFUSION AND RESTLESSNESS. PAIN PILL GIVEN X2 WITH GOOD RESULT. PATIENT IS ORIENTED TO SELF ONLY, AND IS VERY ANXIOUS DESPITE RE-ORIENTATION. UP WITH MAX ASSIST, LEGS ARE VERY WEAK WITH SHUFFLING AND BUCKLING NOTED. PT HAS BEEN INCONTINENT ALL SHIFT. ASSESSMENT UNCHANGED. VSS. SAFETY PRECAUTIONS IN PLACE. CALL LIGHT IN REACH. PERFORMED HOURLY ROUNDING. WILL CONT TO MONITOR.
[2017-03-25 05:56] LABS: CALCIUM 8.4 mg/dL (8.5-10.1); CREATININE 1.3 mg/dL (0.6-1.3); POTASSIUM 4.2 mmol/L (3.5-5.1)
[2017-03-25 11:12] LABS: HEMATOCRIT 34.3 % (42.0-52.0); MCH 29.1 pg (26.0-34.0); MCHC 32.1 g/dL (28.0-37.0); MCV 90.7 fL (80.0-100.0); MPV 9.5 fl. (7.2-11.1); NUCLEATED RBCS 0 /100WBC; PLATELET COUNT* 217 thou/uL (150-400); RBC 3.78 mil/uL (4.50-6.00); RDW-CV 14.3 % (10.5-14.5); WBC 27.5 thou/uL (4.0-11.0)
[2017-03-25 11:27] VITALS: BP 113/70
[2017-03-25 11:30] VITALS: BP 113/63
[2017-03-25 11:50] LABS: ABSOLUTE LYMPHOCYTES 8.8 thou/uL (0.8-5.3); ABSOLUTE MONOCYTES 0.8 thou/uL (0.0-1.2); ABSOLUTE NEUTROPHILS 17.9 thou/uL (1.6-8.1); ATYPICAL LYMPHS 2 %; PLATELET ESTIMATE ADEQUATE
[2017-03-25 12:05] LABS: URINE BLOOD 2+ (Negative); URINE CLARITY CLEAR; URINE COLOR YELLOW; URINE GLUCOSE-RANDOM NEGATIVE (Negative); URINE KETONES NEGATIVE (Negative); URINE LEUKOCYTES-REFLEX NEGATIVE (Negative); URINE NITRITE-REFLEX NEGATIVE (Negative); URINE PROTEIN 1+ (Negative); URINE SPECIFIC GRAVITY >= 1.030 (1.005-1.030); URINE UROBILINOGEN 0.2 E.U./dl (0.2-1.0)
[2017-03-25 12:06] LABS: ICTOTEST (BILI CONFIRMATORY) Negative (Negative); URINE BILIRUBIN 1+ (Negative)
[2017-03-25 12:22] LABS: SQUAMOUS 0-3 Few /LPF (0-3); URINE RBC 3-10 Few /HPF (0-2); URINE WBC-REFLEX 0-5 Rare /HPF (0-5)
[2017-03-25 12:23] LABS: AMORPHOUS URATES Few /LPF (None Seen); BACTERIA-REFLEX 1-9 Few /HPF (None Seen); COARSE GRANULAR CASTS 4-10 Moderate /LPF (None Seen); FINE GRANULAR CASTS 0-3 Few /LPF (None Seen); HYALINE CASTS 0-3 Few /LPF (None Seen); MUCUS 4-6 Moderate strn/LPF (None Seen)
--- NOTE | 2017-03-25 13:10 | NUR ---
Spoke with dtr this AM, they want either [facility] or [facility]. CM contacted [facility], they do not have any private rooms, only a semiprivate until 03/29. Spoke with dtr, she would want a private room for Pt. [facility] should have a bed available on or Friday. Pt now being treated for UTI. Faxed referral to [facility]. Following.
[2017-03-25 15:30] VITALS: BP 100/57
--- NOTE | 2017-03-25 17:12 | CON ---
[address] [address] CONSULTATION Name: AZIZA THOMPSON Room: [address] IN M.R.#: [id number] Admission: 03/22/17 Attend Phys: Zoie Andersen MD Discharge: Date of : [birth year] Report #: [id number] THIS REPORT FOR: //name// CC: Nigel Andersen Anamaria Alexandrea DATE OF SERVICE: 03/22/2017 CARDIOLOGY CONSULTATION HISTORY OF PRESENT ILLNESS: I was asked by Dr. Zoie Andersen to see this 86-year-old white male in cardiology consultation for evaluation and treatment of right groin and right leg pain. This man cannot give a history. He is very hard of hearing and he has been given Dilaudid for the pain in his leg and he cannot really give a history. History comes from his daughter and the chart. He was seen by Dr. Brown on 03/11/2017 because of a heart murmur apparently. He also had swollen feet and an abnormal EKG. Dr. Brown ordered an outpatient echo and the patient was to return after the echo. The patient then came to the Emergency Room at [facility] with chest pain and shortness of breath on 03/16/2017. He subsequently underwent cardiac catheterization I believe on 03/17/2017. He was found to have only mild coronary artery disease. He had normal left ventricular systolic function with ejection fraction of 50%-55%. There was mild aortic insufficiency. Peak gradient across the aortic valve was 30 mmHg. The aortic valve area was 1-1.1 consistent with mild to at most moderate aortic stenosis. It was felt that he should be treated medically. A closure device was deployed, it was a Mynx device. He was then noted to develop Mobitz 2 second degree AV block in the hospital and also went into atrial fibrillation. He subsequently underwent cardioversion and then placement of a pacemaker. I believe those procedures were done on the . I believe this man just went home yesterday that is on the night. He came back today complaining of right groin and right leg pain. Principally, the pain started in his right knee or below his right knee, but then spread up into his thigh. On exam today, he had a swollen tender right calf and a swollen tender right thigh in addition to a large ecchymosis in the right groin involving the entire perineum including his penis. There was no penile edema however. There was a small hematoma on the order of 4 x 4 x 0.5 cm in the right groin area. The right groin area was not tender to the touch. However, the calf and the thigh were tender to the touch and tender to palpation on more deep palpation. He also had a positive Homans sign. Unfortunately, this man cannot give much of a history. His cardiac risk factors include past history of smoking, high blood pressure, family history of heart disease. He is not currently smoking and has not been for some time. He does not have diabetes. He has not had renal failure or peripheral vascular disease. His creatinine is 1.5 with an estimated GFR [place] 44[place] [address] CONSULTATION Name: DONNAAZIZA Room: [address] IN [facility]#: [id number] Admission: 03/22/17 Attend Phys: Zoie Andersen MD Discharge: Date of : [birth year] Report #: [id number] FAMILY HISTORY: Not obtainable. ALLERGIES: He has no known allergies. SOCIAL HISTORY: He is . Does not smoke, drink or use illegal drugs. REVIEW OF SYSTEMS: Positive mostly for the right leg pain and as described above in the history of present illness. Otherwise, his review of systems is negative for some 40 different complaints in 14 different system categories. Please see review of system form for details and negatives in review of systems. Systems reviewed include central nervous system, general, respiratory, cardiovascular, endocrine, gastrointestinal, genitourinary, hematologic, lymphatic, allergic, immunologic, psychiatric, musculoskeletal, skin, eyes, ears, nose, mouth, and throat. PHYSICAL EXAMINATION: GENERAL: He presents as an elderly, quite somnolent from Dilaudid white male in no acute distress. VITAL SIGNS: His pulse is 79, blood pressure is 148/93, respirations are 26, temperature is 97.2. HEENT: His head is atraumatic. Eyes clear. Mucous membranes are moist. NECK: Supple. There is no jugular venous distention or hepatojugular reflux. Thyroid is not enlarged. There is no adenopathy. SKIN: Warm and dry. LUNGS: Clear to auscultation and percussion. HEART: Revealed normal first and second heart sound. There was no S4. There was no S3. There are no murmurs, rubs, thrills, heaves or gallops. PMI is nondisplaced. The heart rhythm was slightly irregular. ABDOMEN: Soft, flat, nontender, no palpable masses, no organomegaly. EXTREMITIES: Reveal no cyanosis, clubbing or edema. NEUROLOGIC: The patient was somewhat somnolence, but could be aroused and could talk and could move all extremities normally. Examination of the leg is as per the history of present illness. There was a positive Homans sign. The right calf was swollen and tender as was the right thigh. There was edema of the right foot and ankle that was 2+ and was worse than on the left ankle where it was only perhaps 1/2+2 at most 1+. There was no swelling or tenderness in the left calf or left thigh and there was a significant difference in the size of the calf and thigh with the right leg being much larger than the left. DIAGNOSTIC DATA: His EKG reveals underlying rhythm is atrial fibrillation with rare conducted beats. Most of the beats are in fact ventricular paced beats. IMPRESSION: 1. Deep vein thrombosis, right leg. 2. [place] [address] CONSULTATION Name: DANIEL THOMPSONN Lan Room: [address] IN ..#: [id number] Admission: 03/22/17 Attend Phys: Zoie Andersen MD Discharge: Date of : [birth year] Report #: [id number] 3. Status post pacemaker for Mobitz 2 second degree atrioventricular block. 4. Jidi-nb-bwvgwuup aortic stenosis. 5. Mild coronary artery disease. 6. Essential hypertension. 7. Edema. 8. Groin hematoma and ecchymosis. RECOMMENDATIONS: He should be anticoagulated for both his DVT and his atrial fibrillation. I would use Eliquis on this man and I would get a venous ultrasound of his legs. Thank you very much for asking me to see the patient. If there are any questions, please feel free to contact me. <ELECTRONICALLY SIGNED> By: Basilio Augustin MD, [facility] 03/25/17 1712 1351 [id number]. Lai Augustin MD, [facility] /nt
[2017-03-25 19:40] VITALS: BP 108/56
[2017-03-26] VITALS (7 sets, daily range): BP systolic 88–117; BP diastolic 42–66
[2017-03-26 05:50] LABS: CALCIUM 8.4 mg/dL (8.5-10.1); CREATININE 1.7 mg/dL (0.6-1.3); POTASSIUM 4.2 mmol/L (3.5-5.1)
--- NOTE | 2017-03-26 07:42 | NUR ---
Pt very hard of hearing. VSS. C/O pain to bottom and R groin area. Medicated per order and positioned onto L side. About 45 minutes afterward, pt could be heard moaning in pain. Repositioned pt to R side, and pt states that was more comfortable. Soon afterward pt was asleep. VSS. AV paced per monitor. Will continue to monitor.
--- NOTE | 2017-03-26 09:37 | NUR ---
[facility] can accept Pt for skilled at dc. They have a bed available today. Waiting for Dr to round and write dc orders.
--- NOTE | 2017-03-26 18:30 | NUR ---
IN PT ROOM DAUGHTER IN ROOM. PT SOA,TACHYPENIC PAIN PILL GIVEN EARLIER.RESP CALLED FOR TX AWAITING CALL BACK, 02 SAT CHECK 97%. PT BOOSTED UP IN BED, PT RESP SLOWED TO 20, WITH PT FEELING MORE COMFORTABLE. PT ENCOURAGED TO KEEP DRINKING PO FLUIDS. URINE REMAINS DK ANTHONY.PT IS NOT PROGRESSING WELL TO GOALS.
[2017-03-27 03:50] VITALS: BP 117/55
[2017-03-27 05:29] LABS: HEMATOCRIT 29.3 % (42.0-52.0); HEMOGLOBIN 9.8 gm/dL (14.0-18.0); MCH 29.7 pg (26.0-34.0); MCHC 33.3 g/dL (28.0-37.0); MPV 9.2 fl. (7.2-11.1); RBC 3.29 mil/uL (4.50-6.00); RDW-CV 14.3 % (10.5-14.5); WBC 26.4 thou/uL (4.0-11.0)
[2017-03-27 05:36] LABS: CREATININE 2.5 mg/dL (0.6-1.3); MAGNESIUM 2.1 mg/dL (1.8-2.4); POTASSIUM 4.4 mmol/L (3.5-5.1)
--- NOTE | 2017-03-27 06:26 | NUR ---
PT IS ABLE TO COMMUNICATE HIS NEEDS TO STAFF WITH MINOR DIFFCULTY; HE DOES NOT ALWAYS USE THE CALL LIGHT AND OFTEN REQUIRES EXTRA TIME TO RESPOND TO QUESTIONS AND FOLLOW COMMANDS. CURRENT PAIN MEDICATION REGIMEN HAS BEEN ADEQUATE FOR CONTROLLING HIS PAIN UP TO THIS TIME. PT CONSISTENTLY FEBRILE DURING THIS SHIFT; PAGED, ORDERS RECEIVED AND IMPLEMENTED.
[2017-03-27 08:17] VITALS: BP 84/51
--- NOTE | 2017-03-27 09:39 | NUR ---
CM updated Jina at [facility] that Pt is not ready to dc today.
--- NOTE | 2017-03-27 11:14 | NUR ---
ASSUMED CARE OF PT THIS AM AROUND 0715- STEWARD/STEWARDESS NIGHT IN PLACE ORDERED, TRACING V-PACED WITH PACEMAKER NOTED- UPON ASSESSMENT PT NOTED TO BE RESTING IN BED MOANING AND UNCOMFORTABLE, DAUGHTER AT SIDE VISITING- PT A&O X2-3 WITH CONFUSION NOTED- BED REST IN PLACE WITH Q 2HOUR TURNS- INCONTINENTN VS CONTINENTN OF BOWEL ANDN BLADDER- LCTA, DIMINISHED IN BASES-LABORED BREATHING NOTED THIS AM- BP LOW AT 84/51 THIS AM-ABDOMEN SOFT/ROUND/NON-TENDER, BS 4 QUADS- LAST BM REPORTED 03/24/17- +1 BLE EDEMA- LAB CALLED RESULTS OF BLOOD CULTURES THIS AM TO JARVIS POSITIVE FOR GRAM POSITIVE COCCI- ASSESSMENT FINDINGS ALONG WITH BLOOD CULTURE RESULTS COMMUNICATED TO WHOM WAS HERE ON UNIT AT TIME- ORDERS NOTED FOR FLUIDS, VANC, SEPSIS SET, UA, CHEST X-RAY, MRSA SWAB, AND FLU SWAB- PRN HYDROCODONE GIVEN AT 0932- POST FIRST BAG ON NS COMPLETION AND HYDROCODONE ADMINISTRATION- PT REPORTS TO BE FEELING BETTER, AND NOTED TO BE RESTING MORE COMFORTABLY- RESP REGULAR AT THIS TIME- IV NOTED TO RIGHT HAND, IVF INFUSING PRESCIBED AT THIS TIME- SCD'S IN PLACE INDICATED- CALL LIGHT AND PERSONAL BELONGINGS WITH IN REACH- HOURLY ROUNDS IN PLACE R/T SAFETY/NEEDS- ALL NEEDS MET AT THIS TIME-WCTM
[2017-03-27 12:00] VITALS: BP 89/58
[2017-03-27 12:38] VITALS: BP 98/53
[2017-03-27 12:42] LABS: INFLUENZA A ANTIGEN None Detected (None Detect); INFLUENZA B ANTIGEN None Detected (None Detect)
--- NOTE | 2017-03-27 17:23 | NUR ---
PT CURRENLTY RESTING IN BED- MEDIA AID IN PLACE AND CONTINUED ORDERED, V-PACED- IV TO RIGHT HAND INTACT WITH IVF INFUSING ORDERED- BP IMPROVMENT NOTED THIS SHIFT, 98/53 MAP 84- PRN YDROCODONE GIVEN X2 THIS SHIFT AT 0923 AND 1650; PRN TYLENOL @ 1210, AND FENT @ 1254 OR PAIN- EFFECTIVNESS NOTED- SCHEDULED SENNA, PRN MIRALAX, AND PRN SIMETHICONE GIVEN THIS SHIFT FOR REPORTS OF GAS PAIN- FLU SWAB COLLECTED AND NOTED TO BE NEGATIVE THIS SHIFT- MRSA SWAB COLLECTED AND SENT TO LAB, RESULTS PENDING- CT PELVIS COMPLETED PER ID, RESULTS NOTED WITH PESISTANT RIGTH INGUINAL SOFT TISSUE HEMATOMA WITH OUT NEW INFLAMMATION, MASS, OR FLUID- HEATING PAD TO ABDOMEN FOR DISCOMFORT THIS SHIFT- CALL LIGHT AND PERSONAL BELONGINGS WITH IN REACH- FREQUENT CHECKS IN PLACE R/T SAFETY/NEEDS- ALL NEEDS MET AT THIS TIME-WCTM
[2017-03-27 20:20] VITALS: BP 126/89
[2017-03-28] VITALS: BP 113/76
[2017-03-28 04:00] VITALS: BP 116/81
--- NOTE | 2017-03-28 05:15 | NUR ---
PT A&O X4 CALM COOPERITVE. 2L O2. ABD PAIN, RELIEF WITH MEDICATION. POSSITIVE BLOOD CULTURES, PROVIDER NOTIFED. FLUIDS RUNNING. PT VPACED ON THE MONITOR. ISO MRSA. VITALS WNL. FALL PRECAUTIONS IN PLACE. HOURLY ROUNDING FOR SAFETY.
[2017-03-28 05:36] LABS: HEMATOCRIT 29.4 % (42.0-52.0); HEMOGLOBIN 9.6 gm/dL (14.0-18.0); MCH 29.5 pg (26.0-34.0); MCHC 32.7 g/dL (28.0-37.0); MCV 90.2 fL (80.0-100.0); MPV 9.3 fl. (7.2-11.1); RBC 3.26 mil/uL (4.50-6.00); RDW-CV 14.3 % (10.5-14.5)
[2017-03-28 05:47] LABS: CREATININE 2.6 mg/dL (0.6-1.3); MAGNESIUM 2.3 mg/dL (1.8-2.4); POTASSIUM 4.5 mmol/L (3.5-5.1)
--- NOTE | 2017-03-28 07:35 | CON ---
[address] [address] CONSULTATION Name: AZIZA THOMPSON Room: [address] IN .R.#: [id number] Admission: 03/22/17 Attend Phys: Zoie Andersen MD Discharge: Date of : [birth year] Report #: [id number] THIS REPORT FOR: //name// CC: Nigel Lechuga DATE OF SERVICE: 03/27/2017 INFECTIOUS DISEASE CONSULTATION ATTENDING PHYSICIAN: Dr. Andersen. REASON FOR EVALUATION: Gram-positive septicemia. HISTORY OF PRESENT ILLNESS: Chart reviewed, patient examined. This 86-year-old man with clear significant hearing deficits, may have some dementia as well. He has known coronary artery disease, was actually hospitalized twice this month within the first week of the month being bradycardic, ultimately underwent catheterization via the right groin and had a pacemaker placed. He was discharged and returned on March 22, had noted right inguinal contusion, probable hematoma related to the procedure as per the evaluation. Blood cultures were collected on the , now with Gram-positive cocci growing 2 out 2 and was started empirically on vancomycin as well as ceftriaxone. It is difficult to ascertain he does complain of abdominal related pain and reportedly has not had a bowel movement since March 24. He has had low grade temperature elevations, T-max recorded at 100.3, several results in the 99s. ALLERGIES: None known. CURRENT MEDICATIONS: Include vancomycin, lactobacillus, hydrocortisone, fentanyl, simethicone, ceftriaxone, ipratropium and albuterol inhaler, multivitamin, cholecalciferol, aspirin, apixaban. PAST MEDICAL HISTORY: Hypertension, known coronary artery disease with stents, pacemaker, previous cholecystectomy, appendectomy. SOCIAL HISTORY: Former smoker. No ethanol. FAMILY HISTORY: Noncontributory. REVIEW OF SYSTEMS: As above. Does admit to some dyspnea and abdominal related pain. PHYSICAL EXAMINATION: GENERAL: Appears chronically ill, undernourished, in mild [place] [address] CONSULTATION Name: AZIZA THOMPSON Room: [address] IN [facility]#: [id number] Admission: 03/22/17 Attend Phys: Zoie Andersen MD Discharge: Date of : [birth year] Report #: [id number] VITAL SIGNS: Temperature 98.2, pulse 78, respirations 16, blood pressure 98/53. SKIN: Warm. Several areas are contused, has a large area in the right inguinal site with evident hematoma. HEENT: Unremarkable. NECK: Supple. LUNGS: Scattered coarse breath sounds. HEART: Regular with some ectopy, has a soft systolic murmur. ABDOMEN: Soft. It is tender in the right inguinal site. I do not appreciate any fluctuance. GENITOURINARY AND RECTAL: Deferred. LABORATORY DATA: Influenza antigen was not detected for A or B. Blood cultures collected on the , 2 out of 2 positive with Gram-positive cocci. Electrolytes: Sodium 130, potassium 4.4, chloride 93, bicarb is 28, BUN and creatinine 69 and 2.5, glucose of 165. Estimated GFR of 24. CBC: White count 26.4, H and H 9.8 and 29.3, platelets of 167. Chest x-ray, mild bilateral perihilar interstitial infiltrates. Pulmonary venous congestion. Lactic acid 1.3. Urinalysis 0-3 white cells. ASSESSMENT AND PLAN: Gram-positive septicemia. We will await identification of the organism. I suspect Staph or Strep etiology, may well be a situation where the infected hematoma. We will do a pelvic CT to exclude the possibility of focal area of pyogenic infection. We will continue the combination therapy for the moment. He is certainly at risk for other related complications such as pneumonitis, may well have aspirated. I do not think any sputum is forthcoming at this point. Given his age and his overall tenuousness, he has likelihood of further complications. <ELECTRONICALLY SIGNED> By: Geoffrey Au MD 03/28/17 0735 1535 [id number] Au MD /nt
[2017-03-28 08:16] VITALS: BP 139/92
--- NOTE | 2017-03-28 10:24 | NUR ---
Spoke with Gonzalo at [facility], they will have a bed available for Pt this weekend, if he is ready to dc. [phone] f:[phone]
--- NOTE | 2017-03-28 10:34 | NUR ---
ASSUMED CARE OF PT THIS AM AROUND 0715- FIELD SERVICE CONSULTANT IN PLACE INDICATED, V-PACED- UPON ASSESSMENT PT NOTED TO BE RESTING IN BED, WATCHING TV- PT A&O X3, FORGETFULLNESS NOTED- CONTINENT VS INCONTINENT OF BOWEL AND BLADDER- BED REST IN PLACE WITH Q 2 HOUR TURNS- VSS, O2 SAT 98% ON 2L VIA [id number] COUGH NOTED- ABDOMEN SOFT/ROUND/TENDER, BS HYPOACTIVE- NO BM IN 4 DAYS NOTED- NOTIFIED WITH NEW ORDERS NOTED AND GIVEN FOR MAG CITRATE AND ENEMA THIS AM-RIGHT GROIN HEMATOME NOTED WITH BRUSING, VASCULAR CONSULT INTIATED THIS AM R/T POSSIBLE INFECTION R/T HEMATOMA- HEPARIN GIVEN SQ PRESCIBED- IV NOTED TO RIGHT HAND INTACT WITH NS INFUSING ORDERED, IV VANC GIVEN PRESCIBED THIS AM- FAIR PO INTAKE NOTED- ISOLATION IN PLACE AND MAINTAINED R/T MRSA OF NARES- CALL LIGHT AND PERSONAL BELONGINGS WITH IN REACH- HOURLY ROUNDS IN PLACE R/T SAFETY/NEEDS- ALL NEEDS MET AT THIS TIME-WCTM
[2017-03-28 12:00] VITALS: BP 121/62
--- NOTE | 2017-03-28 14:28 | NUR ---
Pt was seen d/t hospital LOS. Pt was admitted for right groin pain. Pt was unavailable when RD visited. Pt currently NPO. RD will follow up at a later time. Chart Reviewed. Low nutrition risk at this time.
--- NOTE | 2017-03-28 17:43 | NUR ---
PT CURRENTLY RESTING IN BED, [facility] AT SIDE VISITING- PT MADE NPO EARLY THIS AFTERNOON PER IN CASE OF NEED INTERVENTION R/T VASCULAR CONSULT- PT HAVING HARD TIME WITH NPO STATUS AND DAUGHTER SHOWING CONCERN WELL- PAGED TO CLARIFY FOR CONTINUED NEED, AWAITING CALL BACK AT THIS TIME- IV TO RIGHT HAND INTACT AND SL, IVF COMPLETED THIS SHIFT- [facility] ORDERED THIS SHIFT INDICATED- PT NOTED TO HAVE LARGE RESULTS THIS SHIFT POST [employer] AND [employer] ADMINISTRATION THIS SHIFT- CALL LIGHT AND PERSONAL BELONGINGS WITH IN REACH- ALL NEEDS MET AT THIS TIME-WC
[2017-03-28 20:36] VITALS: BP 123/78; BP 142/67
--- NOTE | 2017-03-28 21:43 | NUR ---
ASSUMED PATIENT CARE AT 1900. PATIENT ALERT AND WATCHING TELEVISION. DTR AT BEDSIDE. BEDSIDE REPORT GIVEN. INSTRUCTED ON CONTROLLED BREATHING TECHNIQUES. PATIENT ABLE TO BREATH WITH NURSE BUT RETURNS TO RAPID SHALLOW BREATHING WHEN NURSE STOPS GUIDED BREATHING. HEMATOMA STABLE. 02 AT 2L. SR ON TELE. HOURLY ROUNDING AND FALL PRECAUTIONS IN PLACE. WILL CONTINUE TO MONITOR.
[2017-03-29] VITALS (7 sets, daily range): BP systolic 130–157; BP diastolic 80–88
[2017-03-29 05:49] LABS: CALCIUM 7.9 mg/dL (8.5-10.1); POTASSIUM 4.8 mmol/L (3.5-5.1)
--- NOTE | 2017-03-29 18:45 | NUR ---
ASSUMED PT CARE AT 0700 PT IS ALERT AND ORIENTED X 4 PT C/O PAIN IN RIGHT LEG PT HAS HEMATOMA BRUISING IN GROIN AND UPPER THIGH AREA PT GIVEN PAIN MEDS AND PT IS TURNED Q 2 HOURS, PT GOT UP TO COMMODE AND CHAIR WITH GAIT BELT AND ASSIST X 2 PT HAS WEAKNESS, PT VANCYO LEVEL LOW AND PHARMACY REDOSED GAVE PT NEW DOSE OF VANCYO, PT IS VPACED WITH BBB ON THE MONITOR PT HAS PACE MAKER PT IS INCONTIENT AT TIMES, PT IS WHEEZY PT IS ON 2L/NC HOB IS ELEVATED PT HAS SOA WITH EXCERTION, PT REFUSES SCD, PT IS GETTING HEPARIN, WILL CONTINUE TO MONITOR
[2017-03-30 04:17] VITALS: BP 140/83
--- NOTE | 2017-03-30 05:08 | NUR ---
ASSUMED PT CARE AT 1930, PT IS A&OX4, HE CAN BE CONFUSED AT TIMES. PT IS TRACING V PACED ON THE MONITOR, ON ISOLATION FOR MRSA, PT IS ON 2L NC SATTING MID TO HIGH 90'S. PT IS INCONTINENT, PT IS POST CATH, WITH A VERY LARGE HEMATOMA TO THE RGHT GROIN, PT C/O PAIN TO GROIN, PRN PAIN MEDICATIONS GIVEN PER MAR. BED IN LOW POSITION, CALL LIGHT IN REACH, BED ALARM ON, YELLOW ARM BAND AND SOCKS IN PALCE. HOURLY ROUNDING COMPLETED FO RPT SAFETY.
[2017-03-30 05:51] LABS: HEMOGLOBIN 9.6 gm/dL (14.0-18.0); MCH 28.9 pg (26.0-34.0); MCHC 31.9 g/dL (28.0-37.0); MCV 90.5 fL (80.0-100.0); RBC 3.32 mil/uL (4.50-6.00); RDW-CV 14.5 % (10.5-14.5); WBC 22.1 thou/uL (4.0-11.0)
[2017-03-30 07:36] LABS: CREATININE 1.7 mg/dL (0.6-1.3)
[2017-03-30 08:45] VITALS: BP 162/98
--- NOTE | 2017-03-30 09:00 | NUR ---
ASSUMED PT. CARE AND RECEIVED REPORT AT 0730. PT A/O TO SELF, SOME SIGNS OF CONFUSION THIS MORNING. ON 2L NC @ 98%. PT INCONT. OF URINE. LARGE AREA OF HEMATOMA TO RIGHT GROIN/LEG/ABD/SCROTUM- NO GROWTH NOTED. FULL ASSESSMENT COMPLETED, REFER TO CHARTING. PT. BATHED AND ASSISTED TO RECLINER. PT. IS A MAX ASSIST OF 2 WITH GAIT BELT AND WALKER. PT. NEEDS CONSISTANT REMINDERS TO TAKE DEEP BREATHS IN NOSE AND OUT MOUTH, INSTEAD OF QUICK SHALLOW BREATHING THROUGH MOUTH. PT. DAUGHTER AT BEDSIDE, WILL CONTINUE WITH PLAN OF CARE. FALL PRECAUTIONS IN PLACE
[2017-03-30 12:33] VITALS: BP 118/71
[2017-03-30 16:45] VITALS: BP 135/75
--- NOTE | 2017-03-30 19:45 | NUR ---
PT. UP TO BSC X4 TODAY, LARGE BROWN SOFT BM AND LARGE AMOUNT OF GAS. PT. STAYED UP IN THE RECLINER MOST OF THE DAY. ONE OF PT. DAUGHTERS ALWAYS AT BEDSIDE AND ALERTING STAFF TO PT. NEEDS. AT APPROX. 1745 PT. WAS MOANING AND C/O PAIN. ASSESSMENT NOTED NO CHANGES IN HEMATOMA APPEARENCE/FIRMNESS. PT. REQUESTING TO STAND AND STRETCH, AFTER THIS HE WANTED TO GET BACK IN BED. PT. TREATED WITH PO PAIN MED, HOWEVER HE BECAME VERY RESTLESS AND MOANING MORE IMMEDIATELY AFTER RECEIVING. THIS RN OPTED TO TREAT WITH IV FENTYNAL PER MAR AT THIS TIME. PT. CALMED AT THIS POINT AND RESTED FOR APPROX. 15 MINUTES. PT. DAUGHTER CONTACTED THIS RN AGAIN AND STATED THAT PT. WAS BECOMING RESTLESS AGAIN, REMOVING HEART MONITOR AND MOANING. PT. ALSO FELT SLIGHTLY CLAMMY UPON ASSESSMENT. PT. STATED THAT HE NEEDED TO URINATE. PT. ASSISTED WITH URINAL IN BED. ONCE PT. HAD URINATED IT SEEMED HE CALMED DOWN IMMEDIATELY. ACCU CHECK OBTAINED FOR ASSESSMENT- SUGAR 260- PER PT. DAUGHTER HE HAD RECENTLY EATEN SWEETS THAT SHE HAD BROUGHT HIM IN. PT. TRANSFERED TO ROOM 203 PER THIS RN REQUEST, PT. NOT ALWAYS ABLE TO CONTACT RN IF IN DISTRESS IF FAMILY IS NOT IN ROOM. PT. REMAINS CALM AND RESTING AT THIS TIME.
[2017-03-30 20:00] VITALS: BP 140/84
[2017-03-31] VITALS: BP 164/95
[2017-03-31 04:00] VITALS: BP 176/99
--- NOTE | 2017-03-31 04:24 | NUR ---
ASSUMED PT CARE AT 1930, PT IS A&OX4, BUT APPEARS TO HAVE EPISODES OF CONFUSION, PT IS ON ISOLATION FOR MRSA IN THE NARES AND BLOOD. PT IS TRACING VPACED ON THE MONITOR, ON 2L CN. PT C/O PAIN THROUGHOUT THE SHIFT, PRN PAIN MEDICATIONS GIVEN PER APR. PT HAS A LARGE HEMATOMA TO HIS RIGHT LEG, STARTIGN IN THE GROIN AND EXTENDING TO MID THIGH. BED IN LOW POSITION, CALL LIGHT IN REACH, BED ALARM ON, YELLOW ARM BAND AND SOCKS IN PLACE. HOURLY ROUNDING COMPLETED FOR PT SAFETY.
[2017-03-31 05:15] LABS: WBC 22.1 thou/uL (4.0-11.0)
[2017-03-31 05:19] LABS: HEMATOCRIT 30.1 % (42.0-52.0); HEMOGLOBIN 9.8 gm/dL (14.0-18.0); MCH 29.6 pg (26.0-34.0); MCHC 32.7 g/dL (28.0-37.0); MCV 90.5 fL (80.0-100.0); MPV 9.5 fl. (7.2-11.1); RBC 3.33 mil/uL (4.50-6.00); RDW-CV 14.2 % (10.5-14.5)
[2017-03-31 05:50] LABS: CALCIUM 8.1 mg/dL (8.5-10.1); CREATININE 1.7 mg/dL (0.6-1.3); POTASSIUM 4.9 mmol/L (3.5-5.1)
[2017-03-31 08:20] VITALS: BP 160/98
[2017-03-31 11:00] VITALS: BP 145/85
--- NOTE | 2017-03-31 11:59 | NUR ---
ASSUMED CARE OF PT @ 0730 AND RECIEVED REPORT FROM ADIA. VITAL SIGNS ARE STABLE. PT IS A/O X4 WITH EPISODES OF CONFUSION. V PACED ON THE MONITOR. PT IS ON 2L NC WITH HYPERVENTILATING LIKE BREATHING THROUGH MOUTH, O2 SAT 96%. PT HAS LARGE BRUISING ON RIGHT HIP AND LOWER EXTREMITY, SOFT WITH FIRMNESS IN RIGHT GROIN-NO CHANGE NOTED. PT GOALS DISCUSSED TO GET UP IN CHAIR FOR MEALS AND DEEP BREATHING THROUGH NOSE. PT BATHED AND UP IN RECLINER WITH MAX ASSIST,GAIT BELT, AND WALKER. DAUGHTER AT BEDSIDE. FALL PRECAUTIONS IN PLACE. CALL LIGHT AND PERSONAL BELONGINGS WITHIN REACH.
--- NOTE | 2017-03-31 14:21 | NUR ---
Pt not ready to dc today, updated Jina at [facility]
[2017-03-31 15:30] VITALS: BP 148/75
--- NOTE | 2017-03-31 17:36 | NUR ---
PT HAD LITTLE CONFUSION TODAY AND WAS APPROPRIATE. PT WAS UP IN CHAIR X2 WITH FAMILY AT BEDSIDE ALL DAY. PT C/O PAIN IN RIGHT LEG AND HIP TODAY AND WAS TREATED WITH PAIN MEDICATION AND REPOSITIONING. NO CHANGES TO BRUISING FROM HEMATOMA OR FIRMNESS. PT HAS CALLED APPROPRIATELY FOR ASSISTANCE WITH URINAL ALL DAY. PT HAS HAD GOOD APPETITE BESIDES WITH DINNER BUT REQUESTED A CHOCOLATE BOOST. PT WAS SITTING IN RECLINER WITH BELONGINGS AND CALL LIGHT IN REACH. FALL PRECAUTIONS IN PLACE FOR PT SAFETY.
[2017-03-31 20:34] VITALS: BP 162/80
[2017-04-01] VITALS: BP 155/88
[2017-04-01 04:00] VITALS: BP 168/82
--- NOTE | 2017-04-01 05:25 | NUR ---
PT IS ABLE TO COMMUNICATE HIS NEEDS TO STAFF WITH MINOR DIFFICULTY; HE IS [id number], SOMETIMES CONFUSED, AND FORGETFUL. CURRENT PAIN MEDICATION REGIMEN HAS BEEN ADEQUATE FOR CONTROLLING HIS PAIN UP TO THIS TIME. CONTACT ISOLATION FOR MRSA MAINTAINED.
[2017-04-01 08:30] VITALS: BP 155/94
[2017-04-01 11:36] VITALS: BP 167/93
--- NOTE | 2017-04-01 11:36 | NUR ---
ASSUMED PT CARE AT 0700 PT IS ALERT AND ORIENTED X 3 WITH PERIODS OF CONFUSION PT SHOWS SIGNS OF PAIN CALLS OUT IN PAIN THIS NURSE GAVE PT PAIN MEDS REASSESSED PT WHO IS SLEEPING, PT IS UP WITH ASSIST X 2 WITH GAITBELT, LAB CALLED A CRITICAL BLOOD CULTURES POSITIVE PT PREVIOUS BLOOD CULTURES WERE POSITIVE AND PT IS ON ANTIBIOTIC AND INFECTIOUS DISEASE IS FOLLOWING PT THIS NURSE NOTIFIED PHYSICIAN NO NEW ORDERS, PT BLOOD PRESSURE AROUND 1130 IS ELEVATED PT TAKES BLOOD PRESSURE MEDS AT HOME MEDS NOT RESTARTED NOTIFIED PHYSICIAN AWAITING CALL BACK, PT IS TURNED Q 2 HOURS PT IS VPACED ON THE MONITOR PT HAS PACEMAKER PT HAS HEMATOMA ON RIGHT GROIN BRUISING IS IMPROVING, WILL CONTINUE TO MONITOR
[2017-04-01 15:35] VITALS: BP 169/96
[2017-04-01 19:50] VITALS: BP 152/80
[2017-04-02] VITALS (13 sets, daily range): BP systolic 125–171; BP diastolic 60–93
[2017-04-02 05:06] LABS: HEMATOCRIT 30.1 % (42.0-52.0); HEMOGLOBIN 9.6 gm/dL (14.0-18.0); MCH 29.2 pg (26.0-34.0); MCV 91.2 fL (80.0-100.0); MPV 8.6 fl. (7.2-11.1); RBC 3.3 mil/uL (4.50-6.00); RDW-CV 14.5 % (10.5-14.5); WBC 20.5 thou/uL (4.0-11.0)
--- NOTE | 2017-04-02 05:08 | NUR ---
END SHIFT: PT RESTLESS, DID NOT REST WELL. CONFUSED- KNOWS SELF ONLY. IMPULSIVE. SR VS V PACED ON MONITOR. REMAINS ON 2L NC. VSS. INCONTINENT EPISODES OVERNIGHT. WEWAKNESS NOTED. UNABLE TO RE-ORIENT. ASSESSMENT UNCHANGED. SAFETY PRECAUTIONS IN PLACE. CALL LIGHT IN REACH. PERFORMED HOURLY ROUNDING. WILL CONT TO MONITOR.
[2017-04-02 06:06] LABS: CALCIUM 8.1 mg/dL (8.5-10.1); CREATININE 1.5 mg/dL (0.6-1.3); MAGNESIUM 2.1 mg/dL (1.8-2.4); POTASSIUM 4.7 mmol/L (3.5-5.1)
--- NOTE | 2017-04-02 13:20 | NUR ---
ASSUMED PT CARE AT 0700 PT IS ALERT AND ORIENTED X 2 PT IS CONFUSED PT DENIES PAIN HAS SOA WITH EXCERTION PT SATS ARE ABOVE 90 THIS IS NOT NEW, PT RIGHT GROIN BRUISING IS IMPROVING PT WBC IS ELEVATED PT IS ON VANCYO REPORTED THESE FINDINGS AND POSITIVE BLOOD CULTURES TO CARDIOLOGY WHO WILL PERFORM A RIVER TODAY LOOKING FOR INFECTION IN THE HEART VALVE OR PACEMAKER PT IS NPO AFER BREAKFAST, DR CUNNINGHAM ORDERED NEW ANTIBIOTIC TO BE GIVEN WITH VANCYO, PT IS UP WITH ASSIST X 2 PT SAT IN CHAIR THIS AM PT IS A FALL RISK BED AND CHAIR ALARMS ARE ON PT IS IN BED RESTING, THIS NURSE CALLED LUIS MIGUEL UGARTE WHO IS DPOA TO NOTIFY ABOUT PROCEDURE LUIS MIGUEL STATED SHE WOULD BE IN BEFORE 1300 LUCY WHO IS DPOA SIGNED CONSENT FORM DUE TO PT CONFUSION, PT IS VPACED ON MONITOR PT HAS PACEMAKER, WILL CONTINUE TO MONITOR
[2017-04-03] VITALS: BP 160/85
[2017-04-03 04:00] VITALS: BP 171/74
[2017-04-03 05:23] LABS: HEMOGLOBIN 10.1 gm/dL (14.0-18.0)
[2017-04-03 05:26] LABS: HEMATOCRIT 31.8 % (42.0-52.0); MCH 29.1 pg (26.0-34.0); MCHC 31.7 g/dL (28.0-37.0); MPV 8.6 fl. (7.2-11.1); PLATELET COUNT* 350 thou/uL (150-400); RBC 3.45 mil/uL (4.50-6.00); RDW-CV 14.9 % (10.5-14.5)
[2017-04-03 05:35] LABS: CREATININE 1.7 mg/dL (0.6-1.3); MAGNESIUM 2.1 mg/dL (1.8-2.4); POTASSIUM 4.8 mmol/L (3.5-5.1)
--- NOTE | 2017-04-03 05:48 | NUR ---
ASSUMED CARE AROUND 1930. PT CONFUSED, RESTLESS, AND TEARFUL TONIGHT. PT APPEARS DEPRESSED. BIRTHDAY TODAY BUT STATED "I JUST WISH WE COULD BE HAPPY". TELE MONITOR TRACING SR/BBB- PACER. ON 2L NC. IV SALINE LOCKED. PAIN TREATED WITH PRN MEDS. VSS, AFEBRILE. INCONT URINE, SMEARS OF BM THIS SHIFT. REPOSITIONED DURING NIGHT. ISOLATION PRECAUTIONS IN PLACE, BEDALARM ON, WILL CONTINUE WITH PLAN OF CARE.
[2017-04-03 08:00] VITALS: BP 162/78
--- NOTE | 2017-04-03 09:41 | NUR ---
Plan continues to be for Pt to dc to [facility] once medically stable. Spoke with Gonzalo at [facility], they will have a bed available on Friday for Pt, if he is ready for dc. Following.
[2017-04-03 12:00] VITALS: BP 142/70
--- NOTE | 2017-04-03 12:43 | TEE ---
[place] [address] TRANSESOPHAGEAL ECHOCARDIOGRAM Name: AZIZA THOMPSON Room: [address] IN [facility]#: [id number] Admission: 03/22/17 Attend Phys: Zoie Andersen, Discharge: Date of : [birth year]03[birth year] Date of Service: 04/03/17 1243 Report #: [id number] THIS REPORT FOR: //name// APPROVED REPORT Study performed: 04/02/2017 15:38:58 EXAM: Transesophageal Echocardiogram Patient Location: In-Patient Room #: [facility] Status: routine BSA: 2.12 HR: 79 bpm BP: 155/88 mmHg Rhythm: NSR Other Information Study Quality: Good Indications Endocarditis Bacteremia, Rule out Valvular vegetations Echo Enhancing Agent Indication: Rule out Shunt Agent(s) / Amount(s) Used: Agitated Saline 20 cc Comments: Two Bubble studies were performed. Procedure After obtaining informed consent, patient underwent transesophageal echo in the [employer]. Type of Sedation : Conscious Sedation Sedation was administered by Yi Ahn RN. Sedation start time: 1545 Case end Time: 1604 Sedation was achieved intravenously with: Versed (3) Fentanyl (25) Transesophageal probe was inserted and advanced into esophagus without difficulty by Nigel Brown MD, FACC. Echo enhancement indication: R/O Septal defect. Echo enhancement agent administered: Agitated Saline The RIVER was performed without complications. Throughout the procedure, the blood pressure, pulse oximetry, cardiac rhythm, and rate were monitored. The patient tolerated the procedure without adverse effects. Recovery from conscious sedation was uneventful and vital signs were [facility] [address] [place] [address] TRANSESOPHAGEAL ECHOCARDIOGRAM Name: AZIZA THOMPSON Room: [address] IN [facility]#: [id number] Admission: 03/22/17 Attend Phys: Zoie Andersen, Discharge: Date of : [birth year]/03/[birth year] Date of Service: 04/03/17 1243 Report #: [id number] stable. Left Ventricle The left ventricle is normal size. There is normal LV segmental wall motion. There is normal left ventricular wall thickness. The left ventricular systolic function is normal. The left ventricular ejection fraction is within the normal range. LVEF is 55-60%. Right Ventricle The right ventricle is normal size. The right ventricular systolic function is normal. Pacemaker lead is present in the right ventricle. Atria Left atrium is moderately dilated. No left atrial thrombus noted The interatrial septum is intact with no evidence for an atrial septal defect. Right atrium is mildly dilated. Aortic Valve Aortic valve is calcified. No aortic regurgitation is present. There is no aortic valvular vegetation. Moderate to severe aortic stenosis. Mitral Valve The mitral valve is normal in structure. Mild mitral regurgitation. There is no evidence of mitral valve vegetations. Tricuspid Valve The tricuspid valve is normal in structure. Trace tricuspid regurgitation. There is no tricuspid valve vegetations. Pulmonic Valve The pulmonary valve is normal in structure. There is no pulmonic valvular regurgitation. There is no pulmonic valve vegetations. Great Vessels The aortic root is normal in size. Ascending aorta and aortic arch is free of atherosclerosis. Pericardium There is no pericardial effusion. <Conclusion> LVEF is 55-60%. Left atrium is moderately dilated. Right [place] [address] TRANSESOPHAGEAL ECHOCARDIOGRAM Name: AZZIA THOMPSON Room: [address] IN ..#: [id number] Admission: 03/22/17 Attend Phys: Zoie Andersen, Discharge: Date of : 04/03/[birth year] Date of Service: 04/03/171242 Report #: [id number] Moderate to severe aortic stenosis. Mild mitral regurgitation. There is no aortic valvular vegetation. <ELECTRONICALLY SIGNED> By: Nigel Brown MD, FACC 04/03/17 1243 42 42 Nigel Brown MD, FACC /INF
[2017-04-03 15:30] LABS: ABSOLUTE MONOCYTES 0.2 thou/uL (0.0-1.2); ABSOLUTE NEUTROPHILS 13.8 thou/uL (1.6-8.1); PLATELET ESTIMATE ADEQUATE
--- NOTE | 2017-04-03 15:40 | NUR ---
ASSUMED PT CARE AT 0700 PT IS ALERT AND ORIENTED X 2-3 PT IS A FALL RISK BED ALARM IS ON PT HAS PAIN IN ABDOMEN AND SMALL AMOUNT IN RIGHT GROIN PAIN IS IMPROVING IN RIGHT GROIN PT UP WITH ASSIST X 2 WITH WALKER TO COMMODE HAD SMALL BM AND RELEASED LARGE AMOUNTS OF GAS PT STATED HE FELT BETTER, PT UP IN CHAIR THIS AM PT IS ON 2L/NC PT HAS SOA WITH EXCERTION PT SATS ARE ABOVE 90 PT ABDOMEN IS PROTRUDING AND SOFT, LAB CALLED WITH CRITICAL OF BLOOD CULTURES POSITIVE GRAM COCCI NOTIFIED DR ARRIAGA AND DR CUNNINGHAM NO NEW ORDERS RECEIVED DR CUNNINGHAM WANTS TO CONTINUE WITH VANCYO AND RIFAMPIN PATHLOGIST HAS BEEN CONSULTED, CARDIOLOGY NOTES THAT PT CAN GO TO SKILLED FACILITY WITH RESIDENTIAL ANTIBIOTICS IF INFECTION DOES NOT CLEAR PACEMAKER WILL HAVE TO COME OUT, PT IS VPACED ON THE MONITOR PT HAS UNDERLYING AIB PER CARDIOLOGY WHO INTERIGATED PACEMAKER AND SHOWED UNDERLYING AFIB, PT IN BED C/O PAIN IN ABDOMEN GAVE PT MYLANTA, PT IS Q 2 TURNS PT HAS ORDER FOR ABDOMINAL ULTRASOUND PT WILL BE NPO AT MIDNIGHT, WILL CONTINUE TO MONITOR
[2017-04-03 16:00] VITALS: BP 155/79
[2017-04-03 20:00] VITALS: BP 136/71
[2017-04-04] VITALS (8 sets, daily range): BP systolic 110–156; BP diastolic 43–81
--- NOTE | 2017-04-04 05:09 | NUR ---
ASSUMED CARE AROUND 1930. PT CONFUSED, ORIENTEDX1-2, AWAKE MOST THE NIGHT. UNABLE TO KEEP IV ACCESS DURING NIGHT. PT PULLED OUT TWO IV'S AND MULTIPLE ATTEMPTS WERE MADE TO GET ANOTHER PIV BY MULTIPLE NURSES. IV VANCO DID NOT FINISH INFUSING. TELE MONITOR TRACING SR/AFIB/BBB WITH HR 60'S. ON 2L NC, PT REMOVING ON A FEW OCCASIONS, SAT 86% ON RA. PT INCONT URINE THIS SHIFT, YELLING OUT AND ATTEMPTING TO GET UP WITHOUT ASSISTANCE WHEN WET. REPOSITIONED DURING NIGHT.PAIN TREATED WITH PRN MEDS. VSS. NPO FOR ABDOMINAL U/S TODAY. ISOLATION PRECAUTIONS IN PLACE, BEDALARM ON, WILL CONTINUE WITH PLAN OF CARE.
--- NOTE | 2017-04-04 07:45 | NUR ---
ASSUMED CARE OF PT ASSESSED AND DOCUMENTED. PT ON CARDIAC MONITER AND IS PACED. PT A&O X4 THIS SHIFT. HE HAS NO C/O PAIN.PT HAS 2+ EDEMA IN BLLE'S. HE IS ON 2L OF 02. PT HAS NOTED BRUISING ON HIS RIGHT GROIN AND THIGH. PT ON ISOLATION. BED IN LOW POSITION CALLLIGHT IN REACH. WM..
--- NOTE | 2017-04-04 11:27 | NUR ---
SRAVANTHI SPOKE TO DR CUNNINGHAM WHO INFORMS THAT THE PATIENT WILL TRANSITION TO [facility], AND IT IS UNCLEAR AT THIS TIME WHEN THE PATIENT WILL BE READY TO D/C. ID AWAITING CULTURES. SRAVANTHI SPOKE TO DANIELA AT [facility] TO DISCUSS ABILTY TO ACCEPT THE PATIENT OVER THE WEEKEND. DANIELA INFORMS THAT [facility] CAN ACCEPT THE PATIENT OVER THE WEEKEND, [facility] WITH [facility] WILL COME TO THE HOSPITAL TO DO AN ON-SITE VISIT TODAY AND TO CONTACT [facility] WITH [facility] OVER THE WEEKEND WHEN THE PATIENT IS READY TO D/C. SRAVANTHI SPOKE TO NURSING AND THE PATIENT TO INFORM OF V ADMISSIONS ON-SITE VISIT. ALL ARE IN AGREEMENT. IF PATIENT IS READY TO D/C OVER THE WEEKEND CONTACT [facility] TO INFORM OF PATIENTS D/C AND FAX D/C ORDERS. [facility] PHONE: [phone]
--- NOTE | 2017-04-04 17:26 | NUR ---
PT HAS BEEN UP AT BEDSIDE CHAIR. HE HAS NOT WANTED TO REPOSITION. HE DID USE THE URINAL THIS SHIFT. TELE WAS STOPPED PER ORDERS. PT R GROIN AND THIGH ARE BRUISED AND SORE TO THE TOUCH. EDUCATED PT ON TUCKING CHIN WHEN SWALLOWING INSTEAD OF THROWING HIS HEAD BACK. PT HAS NO IV ACCESS AND MEDS CHANGED TO PO. PT CONT TO BE UP WITH MAX ASIST. PT CONT ON ISOLATION AND FALL RISK PER FACILITY PROTOCOL. DAUGHTER AT BEDSIDE THROUGH OUT THE DAY. HOURLY ROUNDING COMPLETE. CALL LIGHT IN REACH.
[2017-04-05 05:25] LABS: HEMATOCRIT 30.3 % (42.0-52.0); HEMOGLOBIN 9.8 gm/dL (14.0-18.0); MCH 29.4 pg (26.0-34.0); MCHC 32.4 g/dL (28.0-37.0); MCV 90.7 fL (80.0-100.0); MPV 8.6 fl. (7.2-11.1); RBC 3.34 mil/uL (4.50-6.00); RDW-CV 14.9 % (10.5-14.5); WBC 19.7 thou/uL (4.0-11.0)
[2017-04-05 05:42] LABS: CALCIUM 8.2 mg/dL (8.5-10.1); CREATININE 1.6 mg/dL (0.6-1.3); POTASSIUM 4.7 mmol/L (3.5-5.1)
--- NOTE | 2017-04-05 06:50 | NUR ---
PT IS ABLE TO COMMUNICATE HIS NEEDS TO STAFF WITH ONLY MINOR DIFFICULTY; HE IS FORGETFUL AT TIMES. HE HAS DENIED THE NEED FOR PAIN MEDICATION UP TO THIS TIME. CONTACT ISOLATION PRECAUTIONS FOR MRSA MAINTAINED. PT HAS NO IV ACCESS PER MD ORDER. POSSIBLE D/C TODAY TO [facility].
[2017-04-05 08:00] VITALS: BP 162/85
--- NOTE | 2017-04-05 10:01 | NUR ---
RECEIVED REPORT. ASSUMED CARE OF PT AT 0730. PT A/0 X4, FORGETFUL AT TIMES. VSS. O2 SAT 97% ON 2L PER NC. PT M/S STATUS. AM ASSESSMENT AND VITALS COMPLETED CHARTED. NO IV ACCESS; ORDER IN CHART. PT INFORMED OF PLAN OF CARE, COMMUNICATES UNDERSTANDING. PT EXPRESSING INTEREST IN GETTING OUT OF BED; PT UP WITH 1 TO BEDSIDE COMMODE FOR BM AND IS NOW SITTING UP IN BEDSIDE CHAIR. PT EATING AND DRINKING WITHOUT ISSUE. BREATHING APPEARS LABORED, WHEEZES NOTED. FAMILY IS AT BEDSIDE. RIGHT GROIN HEMATOMA FIRM TO TOUCH AND SOMEWHAT TENDER, BRUISING SURROUNDING AND INTO SCROTUM. PACEMAKER INCISION TO LEFT SHOULDER APPEARS FREE FROM INFECTION, BRUISING NOTED. HIGH FALL RISK PRECAUTIONS IN PLACE. CALL LIGHT IS WITHIN REACH. CHAIR ALARM IS ON. WILL CONTINUE TO MONITOR.
[2017-04-05 16:23] VITALS: BP 129/69
--- NOTE | 2017-04-05 18:17 | NUR ---
VSS. O2 SAT REMAINS >90% ON 2L PER NC. SOB WITH EXERTION NOTED. PT REMAINS A&O X4 WITH SOME OCCASIONAL FORGETFULNESS. PT M/S STATUS; PT EATING AND DRINKING WITHOUT ISSUE. PT UP TO BEDSIDE CHAIR FOR MEALS THIS SHIFT WITH ASSISTANCE. PT UP TO BEDSIDE COMMODE FREQUENTLY TO URINATE AND HAVE BM'S - PT HAD TOTAL OF 5 SOFT, UNFORMED BM'S THIS SHIFT. FAMILY AT BEDSIDE THROUGHOUT THE SHIFT. WHEN IN BED, PT REPOSITIONED Q2HRS FOR COMFORT. RIGHT GROIN REMAINS BRUISED AND FIRM TO TOUCH. PACEMAKER INCISION REMAINS FREE FROM S/S OF INFECTION. ISOLATION MAINTAINED. BLE 2+ EDEMA NOTED. HEELS OFFLOADED WITH PILLOW. PT WORKED WITH P.T. TODAY - ABLE TO AMBULATE SOME. HIGH FALL RISK PRECAUTIONS IN PLACE. CALL LIGHT IS WITHIN REACH. HOURLY ROUNDING PERFORMED. WILL CONTINUE TO MONITOR FOR DURATION OF SHIFT.
[2017-04-05 20:41] VITALS: BP 146/78
[2017-04-05 23:58] VITALS: BP 164/79
[2017-04-06 08:00] VITALS: BP 153/69
--- NOTE | 2017-04-06 08:13 | NUR ---
PT IS ABLE TO COMMUNICATE HIS NEEDS TO STAFF EFFECTIVELY. HE HAS DENIED THE NEED FOR PAIN MEDICATION UP TO THIS TIME. CONTACT ISOLATION PRECAUTIONS MAINTAINED. NO IV ACCESS; MD ORDERED. POSSIBLE DISCHARGE TO THE [facility] TOMORROW.
--- NOTE | 2017-04-06 10:39 | NUR ---
RECEIVED RPEORT. ASSUMED CARE OF PT AT 0730. VSS. O2 SAT 95% ON 2L PER NC. PT A/0 X4 WITH OCCASIONAL FORGETFULLNESS. PT M/S STATUS. NO IV ACCESS, ORDER IN CHART. ISOLATION MAINTAINED FOR MRSA IN THE BLOOD. AM ASSESSMENT AND VITALS COMPLETED CHARTED. PT DENIES PAIN OR DISCOMFORT. PT EATING AND DRINKING WITHOUT ISSUE. PT UP TO BEDSIDE COMMODE WITH ASSITANCE X1, THEN TRANSFERED TO BEDSIDE CHAIR FOR BREAKFAST. PT INFORMED OF PLAN OF CARE, COMMUNICATES UNDERSTANDING. FAMILY AT BEDSIDE. BLE EDEMA NOTED - WILL OBTAIN ALVINO HOSE PER DR ORDER. PT AGREEABLE TO KEEPING LEGS ELEVATED. RIGHT GROIN HEMATOMA FIRM, BUT NOW NON-TENDER, BRUISING SURROUNDS AREA AND SPREADS DOWN INTO SCROTUM AND DOWN LEG. PACEMAKER INCISION NOTED TO LEFT CHEST, NO S/S OF INFECTION NOTED. HIGH FALL PRECAUTIONS REMAIN IN PLACE, CALL LIGHT IS WITHIN REACH. PT TO BE TRANSFERED TO [facility]INT [facility] SPINE ROOM 102, REPORT CALLED TO ANTHONY. WILL CONTINUE TO MONITOR UNTIL TRANSFER OCCURS.
--- NOTE | 2017-04-06 13:30 | NUR ---
ASSUMED CARE O FPATIENT AFTER TRANSFER FROM TELEMETRY UNIT AT APPROXIMATELY 1115. ALERT AND ORIENTED X4. VSS ON 2 LITERS 02. FAMILY AT BEDSIDE AND ASKING FOR MULTIPLE THINGS UPON ARRIVAL TO UNIT. PATIENT HAD NO COMPLAINTS OF PAIN OR NAUSEA AT THE TIME OF ARRIVAL AND WAS RESTING COMFORTABLY IN BED. CALL LIGHT PLACED IN REACH. NURSING WILL CONTINUE TO MONITOR.
[2017-04-06 16:00] VITALS: BP 138/60
--- NOTE | 2017-04-06 17:30 | NUR ---
PATIENT REMAINS ALERT AND ORIENTED. VSS REMAIN STABLE ON . PATINT HAS HAS NO COMPLAINTS OF NAUSEA THIS SHIFT. PAIN HAS BEEN MINIMAL AND PATIENT HAS NOT REQUESTED PAIN MEDICATION. FRIDAY PICTURES TAKEN OF PATIENTS WOUNDS. ALVINO HOSE APPLIED BILATERALLY THIGH HIGH. FAMILY STILL REMAINS AT BEDSIDE. HOURLY ROUNDS HAVE BEEN MAINTAINED. CALL LIGHT IS WITHIN REACH. NURSING WILL CONTINUE TO MONITOR.
[2017-04-06 20:00] VITALS: BP 140/68
[2017-04-06 23:45] VITALS: BP 138/65
[2017-04-07 04:01] LABS: HEMOGLOBIN 10.1 gm/dL (14.0-18.0); RBC 3.49 mil/uL (4.50-6.00)
[2017-04-07 04:04] LABS: HEMATOCRIT 31.9 % (42.0-52.0); MCH 28.9 pg (26.0-34.0); MCHC 31.5 g/dL (28.0-37.0); MCV 91.5 fL (80.0-100.0); MPV 8.5 fl. (7.2-11.1); RDW-CV 14.9 % (10.5-14.5); WBC 20.9 thou/uL (4.0-11.0)
[2017-04-07 04:14] LABS: CREATININE 1.6 mg/dL (0.6-1.3); MAGNESIUM 2.1 mg/dL (1.8-2.4); POTASSIUM 4.2 mmol/L (3.5-5.1)
--- NOTE | 2017-04-07 06:59 | NUR ---
ALERT AND ORIENTED X4. NO C/O PAIN OR NAUSEA. O2 SAT 96% ON 2L/NC. RECEIVES BREATHING BREATHS. LUNG SOUNDS DIMINISHED. FADING BRUISING NOTED ON BODY. PACEMAKER INSERTION SITE APROXIMATED WELL WITH NO REDNESS OR EDEMA. CALL LIGHT WITHIN REACH. BED ALARM ON.
--- NOTE | 2017-04-07 08:45 | NUR ---
RECIEVED REPORT. ASSUMED CARE OF PT AT 0730. VSS. PT HAS NO IV ACCESS. PT ON 2L PER NC WITH O2 SAT AT 96% PT REPORTS BREATHING BETTER THIS AM. PT DENIES ANY COMPLAINTS OF PAIN OR DISCOMFORT THIS AM. ALVINO HOSE IN PLACE BILATERALLY. NOTED 3+ EDEMA BILTEARLLY TO LE. BRUISING NOTED BACK OF RIGHT LEG. PT HAS LOOSE BM THIS AM. DISCUSSED PLAN OF CARE WITH PT AND POSSIBLE DISCHARGE TODAY. PT INFORMED OF PLAN OF CARE. CALL LIGHT IS WITHIN REACH. WILL CONTINUE TO MONITOR FOR DURAITON OF SHIFT.
[2017-04-07 09:30] VITALS: BP 130/58
[2017-04-07 11:52] VITALS: BP 113/70
--- NOTE | 2017-04-07 12:45 | NUR ---
Nutrition follow up note: Diet did advance to heart healthy. Pt was on BSC at time of visit. Noted form chart: +BM, wt stable, labs ok. Appears at low nutrition risk.
[2017-04-07 16:00] VITALS: BP 120/64
--- NOTE | 2017-04-07 16:00 | NUR ---
SPOKE WITH DANIELA/[facility] TODAY. SHE SAID THEY CANNOT ACCEPT PT.ON ZYVOX. NOTIFIED . ORDER OBTAINED FOR IV VANC,PICC LINE. PICC LINE TO BE PLACED TODAY AT 1700. NOTIFIED FOR DISCHARGE ORDERS. HE CHOSE TO KEEP PT.UNTIL AM . NOTIFIED DANIELA/THEE THAT PT.NOT DISCHARGING UNTIL AM. SRAVANTHI CALLED DAUGHTER,SHANEL , AND DISCUSSED POC.
--- NOTE | 2017-04-07 16:02 | S ---
[address] [address] SURGICAL PATH RPT PROCEDURE Name: TOM EVANS Room: [address] IN M.R.#: [id number] Admission: 03/22/17 Date of : [birth year] Discharge: Report #: [id number] Path Case #: [id number] PATHOLOGY REPORT COLLECTION DATE: 04/03/2017 RECEIVED DATE: 04/03/2017 SUBMITTING PHYS: Dr. Zoie Andersen OTHER PHYS: Dr. Anamaria Brown SPECIMEN(S) RECEIVED: A.Peripheral smear * * * * * * * * * * * * FINAL DIAGNOSIS: Peripheral blood smear: - Mild normocytic anemia and mild to moderate leukocytosis with absolute neutrophilia showing a mild left shift and absolute lymphocytosis. (see comment) COMMENT: Overall, the peripheral blood has mild normocytic anemia and mild to moderate leukocytosis with absolute neutrophilia showing a mild left shift and absolute lymphocytosis. The platelet count is within the normal reference range. The etiology of the findings is unclear based entirely on slide review. It is likely related to the patient's underlying medical condition. No markedly atypical lymphoid cells or blasts are identified on scanning. While the WBC differential is without marked abnormalities, there is a mild absolute lymphocytosis. Flow cytometric immunophenotypic analysis may provide additional information to exclude the possibility of an abnormal clone, if clinically indicated. Correlation with clinical history and additional laboratory data is recommended. The case was discussed with Dr. Geoffrey Au on 04/07/17 at 9:45 a.m. (CLW:r; 04/07/2017) PATHOLOGIST: Gissell Garrison M.D. REPORT ELECTRONICALLY SIGNED BY: Gissell Garrison M.D. DATE/TIME: 04/07/2017 16:02 * * * * * * * * * * * * MICROSCOPIC DESCRIPTION: CBC Data (04/03/2017): WBC 20,000 /uL, RBC 3.45, hemoglobin 10.1 g/dL, hematocrit 31.8%, MCV 92.0 fL, MCH 29.1 pg, MCHC 31.7 g/dL, RDW 14.9%, and platelet count 350,000 /uL. Manual white blood cell differential: segs 58% (absolute neutrophils 13,800 /uL), bands 2%, lymphs 39% (absolute lymphocytes 9,000 /uL), monos 1%. Peripheral Blood Smear: [place] [address] SURGICAL PATH RPT PROCEDURE Name: DANIEL EVANSN Lan Room: [address] IN [facility]#: [id number] Admission: 03/22/17 Date of : [birth year] Discharge: Report #: [id number] Path Case #: [id number] Cytomorphological examination of the Gonsalves's stained peripheral blood smear confirms the provided data. Red blood cells show mild normocytic anemia and are without significant anisopoikilocytosis. No schistocytes or microspherocytes are seen. White blood cells are mild to moderately increased in number. They are predominantly segmented neutrophils and are without significant dyspoiesis. Rare metamyelocytes are noted on scanning. Mild reactive changes are noted. Lymphocytes are predominantly small, round, and mature appearing with condensed chromatin and scant cytoplasm with admixed large granular lymphocytes. On scanning, no markedly atypical lymphoid cells are seen. Occasional disrupted (smudge) cells are noted. Monocytes are mature. Platelets are adequate in number and mainly normal in morphology with rare larger platelets noted. GROSS PATHOLOGY: Received are two Gonsalves stained peripheral blood smears, labeled, Tom Evans. (CLW:pit; 04/07/2017) CLINICAL HISTORY: 87 year-old man with leukocytosis. Morphologic review of the peripheral blood smear is requested by the patient's physician. INITIAL CPT CODE(S): A; NC Professional services performed by [email or web address] at [facility] [address], [place] [address] Technical services performed by [employer] at [address] [place] [address], [address], [place] [address]. [facility] [place] [address] PHONE: [phone] DIRECTOR: Colton Lovell M.D. * * * END OF REPORT * * *
--- NOTE | 2017-04-07 17:08 | NUR ---
VSS. PT REMAINS ON 2L PER NC. PT DOES BECOME SOA WITH ACTIVITY. PT PROGRESSING TOWARDS GOALS. PT HAS HAD NO COMPLAINTS OF PAIN OR DISCOMFORT THIS SHIFT. PT IS UP WITH ASSIST X 1 TO BSC. PLAN TO HAVE PICC LINE PLACED THIS EVENING. CONSENT FORM SIGNED. PT TO D/C TOMORROW. PT AND FAMILY INFORMED OF PLAN OF CARE. CALL LIGHT IS WITHIN REACH. WILL CONTINUE TO MONTIOR FOR DURATION OF SHIFT.
--- NOTE | 2017-04-07 20:27 | NUR ---
CONSULTED TO PLACE PICC ORDERED. PT EXPLAINED RISK WELL BENEFIT OF PICC PLACEMENT TO INCLUDE RISK OF DVT AND RISK OF INFECTION. CONSENT OBTAINED, TIME OUT TAKEN PRIOR TO START OF PROCEDURE. PT ASSESSED WITH ULTRASOUND AND LESLEY BRACHIAL FOUND TO BE WIDELY PATENT. PT PREPARED FOR STERILE PROCEDURE PER FACILITY POLICY WITH STREILE DRAPE. 1% LIDOCAINE GIVEN PRIOR TO NEEDLE INSERTION, LINE TRIMMED TO 45 CM AND PLACED WITH 4 CM EXTERNAL. CHEST X-RAY ORDERED TO VERIFY PLACEMENT. PT TOLERATED PROCEDURE WELL, NO ACUTE DISTRESS NOTED, ALL SHARPS PLACED IN SHARPS BIN.
[2017-04-07 22:00] VITALS: BP 158/81
--- NOTE | 2017-04-08 04:49 | NUR ---
PATIENT HAS REMAINED ALERT AND ORIENTED X 4 THROUGHOUT THE SHIFT AND RESTING QUIETLY ON HOURLY ROUNDS. UP WITH ASSIST TO BSC, USED URINAL AND ALSO INCONT OF URINE X 2. CONTINUES WITH GENERALIZED AND BIALT LE EDEMA. PICC LINE INSERTION SUCCESSFUL LAST EVENING WITH IV VANCOMYCIN PROVIDED PER ORDERS. TURNED Q2H WITH ASSIST. VITAL SIGNS STABLE. DISHARGE PENDING. CONTINUE TO MONITOR.
[2017-04-08 08:00] VITALS: BP 142/75
[2017-04-08 11:36] LABS: ALBUMIN 2.2 g/dL (3.4-5.0); DIRECT BILIRUBIN 0.4 mg/dL (<0.1-0.3); TOTAL BILIRUBIN 0.9 mg/dL (<0.1-1.0); TOTAL PROTEIN 5.9 g/dL (6.4-8.2)
--- NOTE | 2017-04-08 12:38 | NUR ---
PT.NOT BEING DISCHARGED TODAY,PER NURSING. NOTIFIED JASON AT [facility]. DID NOT CALL DAUGHTER,SHANEL, SHE IS DUE BACK AT HOSPITAL AROUND LUNCHTIME.
[2017-04-08 15:56] VITALS: BP 136/70
--- NOTE | 2017-04-08 18:23 | NUR ---
ALERT AND ORIENTED X4. UP WITH ASSIST X1 WITH WALKER AND GAIT BELT. DENIES PAIN AND NAUSEA. PICC IS PATENT AND SALINE LOCKED. DID NOT DISCHARGE THIS AM DUE TO SOA, TACHYPNEA, AND WHEEZING. WHICH HAS GREATLY IMPROVED THIS EVENING. VSS ON 2L O2. HOURLY ROUNDS HAVE BEEN MAINTAINED THROUGHOUT SHIFT. CALL LIGHT IS WITHIN REACH. NURSING WILL CONTINUE TO MONITOR.
[2017-04-08 21:30] VITALS: BP 153/84
[2017-04-09 01:29] VITALS: BP 148/67
--- NOTE | 2017-04-09 04:31 | NUR ---
PATIENT HAS REMAINED ALERT AND ORIENTED X 3 WITH SLIGHT FORGETFULNESS. IS ABLE TO USE CALL LIGHT APPROPRIATELY. UP TO [facility] [place]. TRANSFERING WITH ASSIST OF ONE, GAIT BELT AND WALKER. DOES GET SOA WITH ACTIVITY, BUT, OVERALL HAS DENIED BREATHING DIFFICULTIES THIS SHIFT. ALVINO HOSE ARE ON BILAT LE'S AND LE'S ARE ELEVATED UP ON PILLOW. TURNED Q2H. VOIDING PER URINAL. VITAL SIGNS STABLE. MEDS PER ORDERS INCLDING IV VANCOMYCIN. CONTINUE TO MONITOR.
[2017-04-09 08:31] VITALS: BP 160/67
[2017-04-09] MEDS ORDERED: HYDROCODONE-AP1 EAC6 PO (11:03)
[2017-04-09] MEDS ORDERED: DULCOLAX5 MG PO (11:04)
[2017-04-09] MEDS ORDERED: BENADRYL25 MG PO (11:06)
[2017-04-09] MEDS ORDERED: DUONEB 2.5-0.5 M3 ML INH ×2 (11:07)
[2017-04-09] MEDS ORDERED: FLEET ENEMA133 ML RECTAL (11:10)
[2017-04-09] MEDS ORDERED: FLORANEX TABLE1 EACH PO (11:10)
[2017-04-09] MEDS ORDERED: MELATONIN1 MG PO (11:14)
[2017-04-09] MEDS ORDERED: LIDOCAINE1 EACH TOP (11:14)
[2017-04-09] MEDS ORDERED: MILK OF MA2400 MG/10 PO (11:15)
[2017-04-09] MEDS ORDERED: MIRALAX17 GM PO (11:17)
[2017-04-09] MEDS ORDERED: ALUM-MAG HYDRO360 ML PO (11:19)
--- NOTE | 2017-04-09 11:20 | NUR ---
PT.TO DISCHARGE TO SNF TODAY TO [facility]. NOTIFIED DANIELA/THEE. SHE WILL ARRANGE VAN FOR 1330. WHEN ORDERS COMPLETE,CM WILL FAX TO HER [phone]. CHART BEING COPIED TO GO WITH PT. NURSING TO CALL REPORT. SRAVANTHI NOTIFIED DAUGHTER,,JANE. SHE PLANS TO BE HERE AT 1330 FOR TRANSFER.
[2017-04-09] MEDS ORDERED: NYSTATIN100000 UNI PO (11:21)
[2017-04-09] MEDS ORDERED: PEPCID20 MG PO (11:22)
[2017-04-09] MEDS ORDERED: LISINOPRIL20 MG PO (11:24)
[2017-04-09] MEDS ORDERED: PHENERGAN 25 MG25 M1 PO (11:25)
[2017-04-09] MEDS ORDERED: RIFAMPIN 300 M300 M1 PO (11:26)
[2017-04-09] MEDS ORDERED: SENOKOT-S1 TA2 PO (11:27)
[2017-04-09] MEDS ORDERED: GAS RELIEF80 MG PO (11:28)
[2017-04-09] MEDS ORDERED: VANC750 IV (11:30)
[2017-04-09] MEDS ORDERED: TYLENOL325 MG PO (11:31)
[2017-04-09] MEDS ORDERED: ONDANSETRON HCL4 M2 PO (11:33)
[2017-04-09 11:37] VITALS: BP 113/70
[2017-04-09] MEDS ORDERED: LEVAQUIN 500 M500 M2 PO (13:14)
--- NOTE | 2017-04-09 13:19 | NUR ---
ASSUMED CARE OF PATIENT AFTER REPORT THIS MORNING. PATIENT AWAKE, ALERT, AND ORIENTED APPROPRIATELY. PHYSICAL ASSESSMENT COMPLETED AND CHARTED. NO COMPLAINTS OF PAIN TODAY. GIVEN SCHEDULED MEDICATIONS, SEE EMAR FOR DOCUMENTATION. VITAL SIGNS STABLE. OXYGEN SATURATION WITHIN NORMAL LIMITS ON 2 LPM PER NASAL CANULA. PATIENT TRANSFERS AND AMBULATES WITH ASSISTANCE FROM STAFF. USES CALL LIGHT APPROPRIATELY. RECEIVED ORDERS TO DISCHARGE PATIENT TO [facility] TODAY. REPORT CALLED AND GIVEN TO SHAGUFTA. PATIENT DISCHARGING WITH PICC LINE TO RIGHT UPPER ARM FOR [facility]OT[facility]. NURSING WILL CONTINUE TO MONITOR UNTIL DISCHARGE.
--- NOTE | 2017-04-09 13:41 | NUR ---
PATIENT DISCHARGED AT THIS TIME
== END 2017-04-09 13:41 | DRG 919 ==
LOC: M.ERS 01:32 → M.TBA-ER 03:35 → M.2W 03:35 → M.TBA-ER 04:43 → M.2W 08:58 → M.TBA 04-01 11:49 → M.2W 04-01 11:59 → M.ORTHSURG 04-06 11:20
PROVIDERS: Emergency Medicine; Family Medicine; Internal Medicine; Nurse Practitioner Family; Specialist; ADMIT Internal Medicine
PROC: B24BZZ4 Ultrasonography of Heart with Aorta, Transesophageal (ICD-10-PCS; principal; 2017-04-03)
PROC: 02HV33Z Insertion of Infusion Device into Superior Vena Cava, Percutaneous Approach (ICD-10-PCS; 2017-04-07)
DX: I97.630 Postprocedural hematoma of a circulatory system organ or structure following a cardiac catheterization (principal); J18.9 Pneumonia, unspecified organism; G92 Toxic encephalopathy; N17.0 Acute kidney failure with tubular necrosis; A41.02 Sepsis due to Methicillin resistant Staphylococcus aureus; J44.1 Chronic obstructive pulmonary disease with (acute) exacerbation; I50.32 Chronic diastolic (congestive) heart failure; I13.0 Hypertensive heart and chronic kidney disease with heart failure and stage 1 through stage 4 chronic kidney disease, or unspecified chronic kidney disease; I25.10 Atherosclerotic heart disease of native coronary artery without angina pectoris; I44.1 Atrioventricular block, second degree; I48.91 Unspecified atrial fibrillation; I35.0 Nonrheumatic aortic (valve) stenosis; S30.1XXA Contusion of abdominal wall, initial encounter; Y83.8 Other surgical procedures as the cause of abnormal reaction of the patient, or of later complication, without mention of misadventure at the time of the procedure; X58.XXXA Exposure to other specified factors, initial encounter; F03.90 Unspecified dementia, unspecified severity, without behavioral disturbance, psychotic disturbance, mood disturbance, and anxiety; D64.9 Anemia, unspecified; N18.9 Chronic kidney disease, unspecified; M16.11 Unilateral primary osteoarthritis, right hip; M17.11 Unilateral primary osteoarthritis, right knee; B37.9 Candidiasis, unspecified; Z90.49 Acquired absence of other specified parts of digestive tract; Z95.0 Presence of cardiac pacemaker; Z87.891 Personal history of nicotine dependence; Z98.61 Coronary angioplasty status; Z79.899 Other long term (current) drug therapy; Z79.82 Long term (current) use of aspirin; Y93.89 Activity, other specified; Y92.89 Other specified places as the place of occurrence of the external cause; Y99.8 Other external cause status; Z68.33 Body mass index [BMI] 33.0-33.9, adult

== ENCOUNTER 2017-04-20 05:13 | Inpatient (IN) | payer MEDICARE ==
[~2017-04-20] VITALS: Ht 172.7 cm; Wt 98.0 kg
[~2017-04-20 05:13] MED LIST changes: +ALUM-MAG HYDRO360 ML PO; +BENADRYL25 MG PO; +DULCOLAX5 MG PO; +DUONEB 2.5-0.5 M3 ML INH; +FLEET ENEMA133 ML RECTAL; +FLORANEX TABLE1 EACH PO; +GAS RELIEF80 MG PO; +HYDROCODONE-AP1 EAC6 PO; +LEVAQUIN 500 M500 M2 PO; +LIDOCAINE1 EACH TOP; +LISINOPRIL20 MG PO; +MELATONIN1 MG PO; +MILK OF MA2400 MG/10 PO; +MIRALAX17 GM PO; +NYSTATIN100000 UNI PO; +ONDANSETRON HCL4 M2 PO; +PEPCID20 MG PO; +PHENERGAN 25 MG25 M1 PO; +RIFAMPIN 300 M300 M1 PO; +SENOKOT-S1 TA2 PO; +TYLENOL325 MG PO; +VANC750 IV
[2017-04-20 05:23] VITALS: BP 168/64
[2017-04-20 05:45] LABS: HEMATOCRIT 28.9 % (42.0-52.0); PLATELET COUNT* 156 thou/uL (150-400); RBC 3.18 mil/uL (4.50-6.00)
[2017-04-20 05:46] LABS: HEMOGLOBIN 9.3 gm/dL (14.0-18.0); MCH 29.1 pg (26.0-34.0); MCV 90.9 fL (80.0-100.0); MPV 7.8 fl. (7.2-11.1); RDW-CV 14.8 % (10.5-14.5); WBC 11.1 thou/uL (4.0-11.0)
[2017-04-20 05:59] LABS: INR 1.2; PROTIME 11.3 Seconds (9.20-11.50)
[2017-04-20 06:02] LABS: URINE BILIRUBIN NEGATIVE (Negative); URINE BLOOD NEGATIVE (Negative); URINE CLARITY CLEAR; URINE COLOR YELLOW; URINE GLUCOSE-RANDOM NEGATIVE (Negative); URINE KETONES NEGATIVE (Negative); URINE LEUKOCYTES NEGATIVE (Negative); URINE NITRITE NEGATIVE (Negative); URINE PROTEIN NEGATIVE (Negative); URINE SPECIFIC GRAVITY 1.025 (1.005-1.030); URINE UROBILINOGEN 0.2 E.U./dl (0.2-1.0)
[2017-04-20 06:09] LABS: ALBUMIN 2.5 g/dL (3.4-5.0); ALKALINE PHOSPHATASE 73 U/L (46-116); ANION GAP 4 mmol/L (7-16); BUN 33 mg/dL (7-18); CALCIUM 8.1 mg/dL (8.5-10.1); CHLORIDE 104 mmol/L (98-107); CO2 37 mmol/L (21-32); CREATININE 1.6 mg/dL (0.6-1.3); GLUCOSE 122 mg/dL (70-99); NT-PRO BRAIN NAT PEPTIDE 4268 pg/mL (<300); POTASSIUM 3.7 mmol/L (3.5-5.1); SGOT 15 U/L (15-37); SGPT 31 U/L (30-65); SODIUM 145 mmol/L (136-145); TOTAL BILIRUBIN 0.6 mg/dL (<0.1-1.0); TROPONIN-I LEVEL <0.06 ng/mL (<0.06)
[2017-04-20 06:26] LABS: ABSOLUTE EOSINOPHILS 0.3 thou/uL (0.0-0.7); ABSOLUTE LYMPHOCYTES 4.8 thou/uL (0.8-5.3); ABSOLUTE MONOCYTES 0.1 thou/uL (0.0-1.2); ABSOLUTE NEUTROPHILS 5.9 thou/uL (1.6-8.1); HYPOCHROMASIA 1+; PLATELET ESTIMATE ADEQUATE
[2017-04-20 10:00] VITALS: BP 152/72
[2017-04-20 10:45] VITALS: BP 152/65
--- NOTE | 2017-04-20 13:35 | NUR ---
PT ARRIVED TO UNIT AT 1012 WITH ASSISTANCE OF NURSING STAFF. ORIENTED X 4. TANGIRNAQ. DTR JANE TO RETRIEVE HEARING AIDS FROM [facility]. PT IS ABLE TO COMMUNICATE NEEDS TO STAFF. ASSESSMENT COMPLETED. REMOVED LIDOCAINE PATCH DATED 04/19 FROM R POSTERIOR HIP. PER PT'S DTR, PT HAS ARTHRITIS IN R HIP AND KNEE, ALSO HEMATOMA FROM R GROIN ACCESS PCI FROM PREVIOUS ADMISSION IN MARCH. DTR JANE ALSO STATES THAT PT BECOMES CONFUSED WHEN HE TAKES PAIN MEDS. PT DOES NOT REPORT PAIN AT THIS TIME. PT'S DTR STATES THAT F/U WITH DR. CUNNINGHAM RECENTLY. DR. CUNNINGHAM WANTED PT TO REMAIN ON VANCOMYCIN UNTIL 05/02/17 PER DTR JANE REPORT.
[2017-04-20 16:00] VITALS: BP 117/63
--- NOTE | 2017-04-20 16:54 | EKG ---
[place] [address] ELECTROCARDIOGRAM REPORT Name: DONNAAZIZA Lan Room: [address] ADM IN .R.#: [id number] Admission: 04/20/17 Attend Phys: Matt Gallegos, Discharge: Date of : [birth year]03[birth year] Report #: [id number] THIS REPORT FOR: //name// [facility] ED Test Date: 2017-04-20 Test Time: 05:22:56 Pat Name: AZIZA THOMPSON Department: Room: [facility] Gender: M Puller Machine: MARK Frank : 1930 Requested By: Abby Caldwell Order Number: [id number] MD: Nigel Brown Measurements Intervals [place] Rate: 60 P: MA: QRS: -65 QRSD: 140 T: 102 QT: 480 QTc: 480 Interpretive Statements ventricular paced rhythm Compared to ECG 03/23/2017 10:12:59 rate slowed Electronically Signed On 04-20-2017 16:54:32 CDT by Nigel Brown [email or web address] <ELECTRONICALLY SIGNED> By: Nigel Brown MD, [facility] 04/20/17 1654 D: [id number] 1 Nigel Brown MD, FACC /EPI
[2017-04-20 23:50] VITALS: BP 127/68
--- NOTE | 2017-04-21 03:17 | NUR ---
ASSUMED CARE OF PT AT 1900. PT IS ALERT AND ORIENTED. VSS. PERRLA. NO COMPLAINTS OF PAIN. PT HAS +4 EDEMA IN LEGS AND FEET. PT HAS +2-3 GENERAL EDEMA OVER THE REST OF HIS BODY. PT IS GETTING IV LASIX. PT HAS GOOD OUTPUT AT THIS TIME. PT IS PACED ON THE TELEMETRY. PT IS RESTING COMFORTABLY IN BED. RESPIRATIONS ARE EVEN AND NONLABORED. WILL CONTINUE TO MONITOR PT.
[2017-04-21 04:00] VITALS: BP 144/63
[2017-04-21 05:35] LABS: HEMATOCRIT 30.2 % (42.0-52.0); HEMOGLOBIN 9.7 gm/dL (14.0-18.0); MCHC 32.2 g/dL (28.0-37.0)
[2017-04-21 05:38] LABS: MCH 29.3 pg (26.0-34.0); MCV 90.9 fL (80.0-100.0); RBC 3.32 mil/uL (4.50-6.00); RDW-CV 15.1 % (10.5-14.5); WBC 9.8 thou/uL (4.0-11.0)
[2017-04-21 05:52] LABS: ALBUMIN 2.6 g/dL (3.4-5.0); ALKALINE PHOSPHATASE 75 U/L (46-116); BUN 33 mg/dL (7-18); CALCIUM 8.3 mg/dL (8.5-10.1); CHLORIDE 99 mmol/L (98-107); CREATININE 1.8 mg/dL (0.6-1.3); GLUCOSE 185 mg/dL (70-99); MAGNESIUM 1.8 mg/dL (1.8-2.4); POTASSIUM 3.8 mmol/L (3.5-5.1); SGOT 12 U/L (15-37); SGPT 27 U/L (30-65); SODIUM 145 mmol/L (136-145); TOTAL BILIRUBIN 0.8 mg/dL (<0.1-1.0); TOTAL PROTEIN 6.3 g/dL (6.4-8.2)
[2017-04-21 06:26] LABS: CO2 > 45 mmol/L (21-32)
[2017-04-21 08:00] VITALS: BP 123/64
--- NOTE | 2017-04-21 08:26 | CON ---
[address] [address] CONSULTATION Name: AZIZA THOMPSON Room: [address] IN M.R.#: [id number] Admission: 04/20/17 Attend Phys: Matt Gallegos, Discharge: Date of : [birth year]03[birth year] Report #: [id number] THIS REPORT FOR: //name// CC: Parish Lechuga DO Matt Gallegos DATE OF SERVICE: 04/20/2017 CARDIOLOGY CONSULTATION HISTORY OF PRESENT ILLNESS: The patient is an 87-year-old single white male who I was asked to see in the hospital after he complained of shortness of breath and edema. The patient has a long history of chest pain. He has also had a history of at least moderate aortic stenosis. He was recently admitted to [facility] on 03/15/2017 complaining of chest pain and shortness of breath. To rule out significant aortic stenosis, I performed a cardiac catheterization from the right femoral approach. Results showed only mild coronary artery disease. There was only moderate aortic stenosis valve area of 1.0 to 1.1 cm2. He was noted to have episodes of Mobitz type 2 second-degree AV block and paroxysmal atrial fibrillation. I then inserted a permanent dual-chamber Biotronik pacemaker on 03/15/2017. The patient was then discharged only to be admitted 2 days later not feeling well. He was found to have bacteremia and was seen by the Infectious Disease Service. There was concern that it could have been from the hematoma in his right groin. There was also concern he may have seeded the pacemaker, so I performed a RIVER on 03/22/2017 that showed ejection fraction of 55%, biatrial enlargement, moderate aortic stenosis and no valvular vegetations. The patient was finally discharged near the end of March to [facility]. At the [facility], the patient has been receiving physical therapy. He denied any recent chest pain. He has been short of breath and had increasing edema. He was brought to the hospital yesterday and admitted. He denied any palpitations, syncope or fever. PAST MEDICAL HISTORY: Significant for hypertension. He has had previous cholecystectomy. MEDICATIONS: On admission from [facility] consist of carvedilol, Lasix, hydralazine, aspirin, prednisone, nebulizer, Pepcid and lisinopril. ALLERGIES: He has no known drug allergies. SOCIAL HISTORY: The patient is single. He quit smoking years ago. FAMILY HISTORY: Noncontributory. REVIEW OF SYSTEMS: There has been no history of stroke or asthma. [place] [address] CONSULTATION Name: AZIZA THOMPSON Room: [address] IN [facility].#: [id number] Admission: 04/20/17 Attend Phys: Matt Gallegos, Discharge: Date of : [birth year] Report #: [id number] history of anemia, with no source of bleeding. He has a history of memory loss, diabetes and chronic kidney disease. He has a history of hypertension. No psychiatric illness. PHYSICAL EXAMINATION: GENERAL: Revealed an elderly, frail-appearing male, who appeared in no distress. VITAL SIGNS: His blood pressure was 150/60, pulse 60. He was afebrile. HEENT: He was anicteric. Conjunctivae were pale. Mucous members appeared dry. NECK: Neck veins were nondistended. CHEST: Clear to auscultation. CARDIAC EXAMINATION: Regular rate and rhythm, with grade 3 systolic ejection murmur. ABDOMEN: Obese. EXTREMITIES: Had pitting edema. SKIN: Cool and dry. LABORATORY DATA: His ECG shows an AV sequentially paced rhythm. His chest x-ray in the Emergency Room showed cardiomegaly, tortuous aorta and diffuse pulmonary infiltrates. His lab work, sodium 145, BUN 33, creatinine 1.6 and potassium 3.7. Albumin 2.5. BNP 4268. Recent TSH 0.6. White blood cell count 11.1 and hemoglobin 9.3. IMPRESSION AND RECOMMENDATIONS: 1. Edema. Suspect venous insufficiency. Recommend Lasix. 2. Shortness of breath. Diastolic heart failure. Recommend Lasix. 3. Moderate aortic stenosis. 4. Bacteremia. The patient recently saw Infectious Disease, who felt his bacteremia had cleared with prolonged antibiotics. The patient has a PICC line in place. 5. Chronic kidney disease. 6. Diabetes. 7. Anemia. No source of bleeding. 8. Dementia. 9. History of atrial fibrillation. The patient is not a candidate for anticoagulation. 10. Previous pacemaker. The patient is now paced. <ELECTRONICALLY SIGNED> By: Nigel Brown MD, [facility] 04/21/17 0826 [id number] [id number] Brown MD, [facility] /nt
[2017-04-21 08:32] LABS: BUN 34 mg/dL (7-18); CALCIUM 8.7 mg/dL (8.5-10.1); CHLORIDE 98 mmol/L (98-107); CREATININE 1.8 mg/dL (0.6-1.3); GLUCOSE 186 mg/dL (70-99); POTASSIUM 3.7 mmol/L (3.5-5.1); SODIUM 145 mmol/L (136-145)
[2017-04-21 08:35] LABS: CO2 > 45 mmol/L (21-32)
--- NOTE | 2017-04-21 09:30 | NUR ---
CM ASSESSMENT: Pt is A&O. Spoke with Pt's dtr, Dalia, via phone. Pt has been residing at [facility] since 04/09/17. Pt does not want to return to [facility] [place]. Faxed referrals to [facility] and [place] per dtr's request. Prior to this recently hospital stay, Pt was living at home alone. Independent with ADLs. Supportive children. Pt had a cane that he used at home, continued to drive. Pt has life alert. Hx of [facility]. Following for disposition.
--- NOTE | 2017-04-21 09:58 | NUR ---
ASSUMED CARE OF PT THIS AM AROUND 0715- ECONOMIC DEVELOPMENT COORDINATOR IN PLACE ORDERED, V-PACED WITH NOTED PACE MAKER- PT A&O X3- CONTINET OF BOWEL AND BLADDER- EXTENSIVE ASSIST X1-2 WITH TRANSFERS- LCTA, DIMINISHED IN BASE- RESP EVEN AND UN-LABORED- VSS, O2 SAT 98% ON 2L VIA NC- ABDOMEN SOFT/ROUND/NON-TENDER, BS X4 QUADS- LAST BM REPORTED 04/20/17- 3+ BLE/PEDAL EDEMA NOTED, LEG ELEVATION ENCOURAGED- 2+ UE EDEMA NOTED- IV LASIX GIVEN PRESCIBED, GOOD OUTPUT NOTED- SINGLE LUMEN PICC NOTED TO RUE INTACT, DRESSING C/D- FLUCHING WELL WITH BLOOD RETURN NOTED- IV ABT GIVEN THIS AM PRESCIBED, NO ADVERSE REACTIONS NOTED- ISOLATION IN PLACE AND MAINTINED R/T MRSA OF BLOOD- PT DENIES ANY C/O PAIN/DISCOMORT AT THIS TIME- UP TO BED SIDE CHAIR THIS AM, GOOD PO INTAKE NOTED- CALL LIGHT AND PERSOANL BELONGINGS WITH IN REACH- HOURLY ROUNDS IN PLACE R/T SAFETY/NEEDS- ALL NEEDS MET AT THIS TIME-[facility]
[2017-04-21 11:58] VITALS: BP 80/43
[2017-04-21 11:59] VITALS: BP 80/43
[2017-04-21 16:00] VITALS: BP 116/55
--- NOTE | 2017-04-21 16:45 | NUR ---
PT CURRENLTY RESTING IN BED- CHILD WELFARE SPECIALIST IN PLACE AND CONTINUED ORDERED, TRACING V-PACED WITH UNDERLYING A-FLUTTER- PICC IN PLACE TO RUE,DRESSING C/D/I- IV LLASIX GIVEN PRESCIBED, GOOD OUTPUT CONTINUES- CHEST X-RAY NOTED WITH NO SIGNIFICANT CHANGES, VQ SCAN COMPLETED PRESCIBED REPORTED WITH LOW PROBABILTY FOR PE- PT NOTED TO HAVE LARGE LOOSE BM WITH NO NEED FOR SCHEDULED ENEMA THIS AM- BLOOD CULTUES NEGATIVE- UP TO CHAIR THIS SHIFT, TOLERATING WELL- GOOD PO INTAKE NOTED WITH MEALS- DENIES ANY C/O PAIN/DISCOMFORT AT THIS TIME- CALL LIGHT AND PERSONAL BELONGINGS WITH IN REACH- MAKES NEEDS KNOWN- ALL NEEDS MET AT THIS TIME-WCTM
[2017-04-21 20:00] VITALS: BP 101/49
[2017-04-22] VITALS: BP 128/66
[2017-04-22 05:00] VITALS: BP 138/76
--- NOTE | 2017-04-22 05:31 | NUR ---
ASSUMED PATIENT CARE AT 1900. PATIENT ALERT AND ORIENTED TIMES THREE. ABLE TO AMBULATE WITH THE ASSISST OF ONE AND A WALKER. IV PATENT TO BLOOD DRAW AND IV FLUIDS, NO COMPLAINT OF PAIN OR DISCOMFORT NOTED. HOURLY ROUNDING COMPLETED DOCUMENTED. NO SKIN ISSUES BEYOND BRUISING FROM NEEDLE STICKS. FALL RISK PRECAUTIONS IN PLACE. FILLING MACHINE TENDER COMPLETED DOCUMENTED
[2017-04-22 06:07] LABS: CALCIUM 8.4 mg/dL (8.5-10.1); MAGNESIUM 1.8 mg/dL (1.8-2.4); POTASSIUM 3.7 mmol/L (3.5-5.1)
[2017-04-22 07:51] VITALS: BP 135/74
--- NOTE | 2017-04-22 08:59 | NUR ---
ASSUMED CARE OF PT THIS AM AROUND 0715- DESKTOP MANAGER IN PLACE PRESCIBED, V-PACED- UPON ASSESSMENT PT NOTED TO BE RESTING IN BED- PT A&O X4- CONTINENT OF BOWEL AND BLADDER- EXT ASSIST X1 WITH TRANSFERS- LCTA, RESP EVEN AND UN-LABORED- DYSPNEA NOTED ON EXERTION- VSS, O2 SAT 93% ON 2L VIA NC- ABDOMEN SOFT/ROUND/NON-TENDER, BS 4 QUADS- SINGLE LUMEN PICC NOTED TO RUE IN INTACT, DRESSING C/D/I- IV ABT GIVEN PRESCIBED THIS AM- 3+ BLE EDEMA NOTED, LEG ELEVATION IN PLACE, 2+ UE EDEMA NOTED- LASIX BID SCHEDULED, CONTINUES TO HAVE GOOD OUTPUT- GOOD PO INTAKE NOTED THIS AM WITH BREAKFAST- PT DENIES ANY C/O PAIN/DISCOMFORT AT THIS TIME- CALL LIGHT AND PERSONAL BELONGINGS WITH IN REACH- HOURLY ROUNDS IN PLACE R/T SAFETY/NEEDS- ALL NEEDS MET AT THIS TIME-WCTM
[2017-04-22 11:20] VITALS: BP 83/43
--- NOTE | 2017-04-22 13:34 | NUR ---
CM left message for admissions at [facility], to see if they will be able to accept Pt at ri for skilled. Awaiting call back.
[2017-04-22 16:18] VITALS: BP 126/65
--- NOTE | 2017-04-22 16:30 | NUR ---
PT CURRENTLY RESTING IN BED SIDE RECLINER, LEGS ELEVATED- NET SOFTWARE ENGINEER IN PLACE ORDERED, TRACING V-PACED WITH UNDERLYING A-FLUTTER- PICC TO RUE C/D/I, FLUSHING WELL AND SL- NEW ORDERS RECIEVED FOR METOLAZONE 5MG PER AND GIVEN PRESCIBED- WN HERE TO ASSESS BLE WITH LEGS CLIFFORD WRAPPED, SILVER FOAM TO RLE BLISTER PER WN, ORDERS UPDATED TO MAR PRESCIBED PER WN- GOOD PO INTAKE NOTED THIS SHIFT WITH MEALS- WORKING WITH THERAPIES PRESCIBED- PT NOTED TO HAVE LARGE BM THIS SHIFT- DENIES ANY C/O PAIN/DISCOMFORT AT THIS TIME- CALL LIGHT AND PERSONAL BELONGINGS WITH IN REACH- ALL NEEDS MET AT THIS TIME-WCTM
--- NOTE | 2017-04-22 17:24 | NUR ---
WOUND CARE NOTE: CONSULT RECEIVED FOR EDEMA WITH BLISTERS BILATERAL LEGS. PATIENT PRESENTS WITH 4+ PITTING EDEMA BILATERALLY. PALPABLE PEDAL PULSES BILATERALLY. ONE BLISTER NOTED TO THE RIGHT MEDIAL LEG MEASURING 1X1.7, INTACT, SEROUS FILLED. APPLIED LOTION TO BILATERAL LEGS AND FEET. APPLIED OPTIFOAM AG TO BLISTER. WRAPPED BOTH LEGS WITH KERLIX AND CLIFFORD FROM TOES TO KNEES. RIGHT CALF: 40.5 LEFT CALF: 43 RIGHT ANKLE: 29.5 LEFT ANKLE: 30.1 RIGHT INSTEP: 29.6 LEFT INSTEP: 29.5 EDUCATED PATIENT ON IMPORTANCE OF KEEPING LEGS ELEVATED, COMMUNICATED UNDERSTANING. CURRENTLY IN RECLINER WITH LEGS ELEVATED. RECOMMEND TUBIGRIP IN FUTURE ELEVATE BLE
[2017-04-22 20:00] VITALS: BP 117/60
[2017-04-23] VITALS: BP 140/63
--- NOTE | 2017-04-23 00:28 | NUR ---
ASSUMED PATIETN CARE AT 1900. PATIENT IN CHAIR AT BEDSIDE. STONEMASON HELPER COMPLETED. PATIENT USES CALL LIGHT APPROPRIATELY FOR HELP WITH URINAL. STRICT I&O BEING MAINTAINED. VITAL SIGNS REMAIN STABLE. ENERALIZED EDEMA DECREASING. WOUNDS TO LOWER EXTREMITIES WRAPPED BY WOUND NURSE 04/22/17. IV PATENT TO BLOOD DRAWS AND IV FLUIDS. NO COMPLAINTS OF PAIN OR DISCOMORT NOTED. REMAINS ON O2 VIA NC. WILL CONTINUE TO MONITOR.
[2017-04-23 04:00] VITALS: BP 141/66
[2017-04-23 05:28] LABS: HEMOGLOBIN 9.7 gm/dL (14.0-18.0); WBC 14.6 thou/uL (4.0-11.0)
[2017-04-23 05:30] LABS: HEMATOCRIT 29.9 % (42.0-52.0); MCHC 32.4 g/dL (28.0-37.0); MCV 89.4 fL (80.0-100.0); MPV 8.3 fl. (7.2-11.1); RBC 3.34 mil/uL (4.50-6.00); RDW-CV 14.8 % (10.5-14.5)
[2017-04-23 05:34] LABS: BUN 51 mg/dL (7-18); CALCIUM 8.5 mg/dL (8.5-10.1); CHLORIDE 97 mmol/L (98-107); CREATININE 2.1 mg/dL (0.6-1.3); GLUCOSE 126 mg/dL (70-99); MAGNESIUM 1.9 mg/dL (1.8-2.4); POTASSIUM 3.6 mmol/L (3.5-5.1); SODIUM 146 mmol/L (136-145)
[2017-04-23 05:38] LABS: CO2 > 45 mmol/L (21-32)
--- NOTE | 2017-04-23 06:54 | NUR ---
patient vial signs remained stable throuh the night. Currently resting in recliner. Crit lab epored to Edema noted to be decreasing. No complaint of pain or discomfort. O2 remains via NC. Patient compliant with all cares. HOurly rounding completed as documented. Fall risk precautions in place.
[2017-04-23 08:00] VITALS: BP 141/74
--- NOTE | 2017-04-23 08:00 | NUR ---
ASSUMED CARE OF PT ASSESSED AND DOCUMENTED. PT IS ON CARDIAC MONITER TRACING V-PACED HR 60. PT IS A&O WITH NO C/O PAIN. HE IS VERY [place]. PT CONT ON ISO FOR MRSA. PT IS ON 2L OF O2. FALL PRECAUTIONS IN PLACE PER FACILITY PROTOCOL. PT HAS EDEMA IN LBE'S. CALL LIGHT IN REACH.PT UP IN RECLINER AT BEDSIDE.
[2017-04-23 11:49] VITALS: BP 83/40
--- NOTE | 2017-04-23 12:06 | NUR ---
LEFT MESSAGE FOR RACHEL EARLIER AND FAXED REFERRAL SNF INFORMATION TO HIM. WILL AWAIT CALL BACK FROM HIM.
--- NOTE | 2017-04-23 15:15 | NUR ---
SPOKE WTIH PT.'S DAUGHTER AT NURSES STATION ABOUT 1230. TOLD HER [place] [facility] CAN TAKE HER DAD AT DISCHARGE. [facility]RA/MITESH CALLED BACK AND LEFT CM A VM STATING THEY HAVE NO [facility]ALE SNF BEDS AVAILABLE AT THIS TIME. DAUGHTER SAID HER DAD WOULD LIKE TO GO TO [facility] [place] . SHE WAS OK WITH CM MAKING REFERRAL THERE. POTENTIAL DISCHARGE PLANNED FOR TOMORROW.
[2017-04-23 15:55] VITALS: BP 102/49
--- NOTE | 2017-04-23 17:11 | NUR ---
PT HAS RESTED IN BED AND IN BEDSIDE RECLINER THIS SHIFT WITH Q2 HR T&REPO.HE HAS A RED BOTTOM. BARRIER CREME APPLIED. PT HAS HAD 2BM'S THIS SHIFT BOTH BARELY FORMED. PT HAS HAD FT ELEVATED THIS SHIFT. HE HAD NO S OR SX OF ADVERSE REACTION TO VANCO NOTED. EDUCATION GIVEN ON DEMAND HOURLY ROUNDING COMPLETE.
[2017-04-23 20:00] VITALS: BP 121/58
[2017-04-24] VITALS: BP 134/71
[2017-04-24 04:00] VITALS: BP 146/83
--- NOTE | 2017-04-24 04:20 | NUR ---
assusmed patient care at 1900. patietn alert and oriente times our throuh most of the night. When he awakens early in the morning, he is more conused. Edema in bilateral upper extrremities significantly improved. No complaint so f pain or discomfrot through sift. Vital signs remain stable. Complian with all treatments and cares. Uses call light appropriately. Hourly rounding and surplus property disposal agent comleted as documented.
[2017-04-24 08:00] VITALS: BP 132/62
[2017-04-24 08:25] LABS: ABSOLUTE EOSINOPHILS 0.1 thou/uL (0.0-0.7); ABSOLUTE LYMPHOCYTES 5.8 thou/uL (0.8-5.3); ABSOLUTE MONOCYTES 0.6 thou/uL (0.0-1.2); ABSOLUTE NEUTROPHILS 5.7 thou/uL (1.6-8.1); BASOPHILS 0.2 %; EOSINOPHILS 0.5 %; HEMATOCRIT 30.1 % (42.0-52.0); HEMOGLOBIN 9.8 gm/dL (14.0-18.0); LYMPHOCYTES 47.8 %; MCHC 32.7 g/dL (28.0-37.0); MCV 88.8 fL (80.0-100.0); MONOCYTES 4.7 %; MPV 8.4 fl. (7.2-11.1); NUCLEATED RBCS 0 /100WBC; PLATELET COUNT* 212 thou/uL (150-400); POLYS 46.8 %; RBC 3.39 mil/uL (4.50-6.00); RDW-CV 14.8 % (10.5-14.5); WBC 12.2 thou/uL (4.0-11.0)
[2017-04-24 08:49] LABS: ALBUMIN 2.7 g/dL (3.4-5.0); CALCIUM 8.4 mg/dL (8.5-10.1); POTASSIUM 3.6 mmol/L (3.5-5.1); TOTAL BILIRUBIN 0.7 mg/dL (<0.1-1.0); TOTAL PROTEIN 5.9 g/dL (6.4-8.2)
--- NOTE | 2017-04-24 09:09 | NUR ---
ASSUMED PT CARE AT 0730, FULL ASSESMENT DONE CHARTED, PT A/O X4, [place], DENIES PAIN, VSS, M/S STATUS NOW. SATS 97% ON 2L. PT UP TO CHAIR FOR BREAKFAST. SPOKE TO DR GONZALES RE:PLAN OF CARE, PT MAY DC TOMORROW, WILL WATCH LABS. FALL PRECATUIONS IN PLACE, CALL LIGHT IN RECAH. WILL CONTINUE WITH PLAN OF CARE
--- NOTE | 2017-04-24 09:59 | NUR ---
Spoke with Keyonna Mendez at [facility], she did not receive referral yesterday, refaxed. Pt not ready to dc today, possibly ready tomorrow. Following.
[2017-04-24 16:16] VITALS: BP 103/55
[2017-04-24 19:45] VITALS: BP 109/53
[2017-04-25 04:24] VITALS: BP 140/59
--- NOTE | 2017-04-25 04:41 | NUR ---
END SHIFT: PT RESTED WELL. NO COMPLAINTS. VOIDS WITHOUT DIFFICULTY PER URINAL. BILAT LE WRAPS ARE CDI. REMAINS ON 2L NC. NO PAIN. ASSESSMENT UNCHANGED. VSS. SAFETY PRECAUTIONS IN PLACE. CALL LIGHT IN REACH. WILL CONT TO MONITOR.
--- NOTE | 2017-04-25 07:15 | NUR ---
ASSUMED CARE OF PT ASSESSED AND DOCUMENTED. PT IS A&O WITH NO C/O PAIN. 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 VSS WNL. PT IS AFEBRILE. HE IS ON 2L OF O2. PT IS ON FALL PRECAUTIONS PER FACILITY PROTOCOL. DAUGHTER IS AT BEDSIDE. BED IS IN LOW POSITION CALL LIGHT IS IN REACH. WM.
[2017-04-25 08:00] VITALS: BP 133/65
[2017-04-25 08:38] VITALS: BP 133/65
[2017-04-25 09:08] LABS: CALCIUM 8.4 mg/dL (8.5-10.1); CREATININE 1.7 mg/dL (0.6-1.3); POTASSIUM 3.9 mmol/L (3.5-5.1)
--- NOTE | 2017-04-25 10:58 | NUR ---
Pt discharging to [facility] today. Updated Pt's dtr. Facility will potato picker Pt at 2pm. Faxed dc orders. Chart copied. Nurse report number provided,
--- NOTE | 2017-04-25 14:54 | NUR ---
PT DISCHARGED TO FACILITY PICTURE OF LLE BLISTER TAKEN FAMILY WAS WITH PT REPORT GIVEN TO JORDAN LOPEZ BY RUBÉN THAYER
--- NOTE | 2017-05-15 15:28 | CON ---
[facility] [address] [place] [address] CONSULTATION Name: AZIZA THOMPSON Room: [address] [place] .R.#: [id number] Admission: 04/20/17 Attend Phys: Matt Gallegos, Discharge: 04/25/17 Date of : [birth year] Report #: [id number] THIS REPORT FOR: //name// CC: Parish Gallegos DATE OF SERVICE: 04/23/2017 REQUESTING PHYSICIAN: Devante Luis M.D. REASON FOR CONSULTATION: Chronic kidney disease and possible acute component. HISTORY OF PRESENT ILLNESS: The patient is an 82-year-old white male admitted to the hospital on 04/20/2017 with complaints of progressive shortness of breath. The patient also mentioned increased lower extremity edema. There was no chest pain, no fever, no abdominal pain, he was evaluated in the Emergency Room and admitted to the hospital with a diagnosis of congestive heart failure exacerbation, chronic kidney disease, and atrial fibrillation. Dr. Brown field logistics coordinator was consulted and his assessment was shortness of breath due to diastolic heart failure. Recommend Lasix, chronic edema, moderate aortic stenosis, bacteremia, diabetes. PAST MEDICAL HISTORY: Significant for: 1. Chronic kidney disease stage 3, possible stage 4. 2. Diabetes mellitus type 2. 3. Chronic anemia. 4. Dementia. 5. Chronic atrial fibrillation. 6. Chronic diastolic heart dysfunction. SOCIAL HISTORY: No tobacco or alcohol abuse. FAMILY HISTORY: Noncontributory. REVIEW OF SYSTEMS: Not very reliable due to his dementia, but his primary complaints were shortness of breath. PHYSICAL EXAMINATION: GENERAL: He is awake and alert. He is disoriented. VITAL SIGNS: Blood pressure 140/74, heart rate 60 and irregular, respiratory rate 16, afebrile. HEENT: Pupils are round. NECK: With elevated JVD. LUNGS: Decreased air movement. CARDIOVASCULAR: [place] [address] CONSULTATION Name: AZIZA THOMPSON Room: [address]#: [id number] Admission: 04/20/17 Attend Phys: Matt Gallegos, Discharge: 04/25/17 Date of : [birth year] Report #: [id number] ABDOMEN: Soft. LOWER EXTREMITIES: With chronic edema. LABORATORY REPORT: White count 14.6 thousand, hemoglobin 9.7. Serum sodium 146, potassium 3.6, chloride 97, carbon dioxide more than 45, BUN 51, creatinine 2.1. Chest x-ray revealed cardiomegaly and persistent interstitial prominence. ASSESSMENT: An 87-year-old gentleman with dementia and chronic kidney disease stage 3B admitted with diastolic heart failure and fluid overload and started on Lasix. His creatinine is slightly increased, but I would accept that increasing creatinine, as long as creatinine does not continue to rise. The patient was in congestive heart failure and we need to diurese him to make sure that his pulmonary edema, resolved. Overall, prognosis is very guarded in this 87-year-old gentleman. We will follow him closely with you and make sure that he is not over diuresed. Thank you very much for asking my opinion on acute kidney injury in this gentleman with chronic kidney disease stage 3. We will follow with you. <ELECTRONICALLY SIGNED> By: Rich Duran MD 05/15/17 1528 [id number] [id number] Duran MD /[facility]
== END 2017-04-25 14:15 | DRG 871 ==
LOC: M.ERS 05:13 → M.2W 06:26 → M.TBA-ER 06:26 → M.2W 10:08
PROVIDERS: Emergency Medicine; Internal Medicine; Internal Medicine Cardiovascular Disease; ADMIT Family Medicine
DX: A41.9 Sepsis, unspecified organism (principal); I50.33 Acute on chronic diastolic (congestive) heart failure; N17.0 Acute kidney failure with tubular necrosis; J18.9 Pneumonia, unspecified organism; I13.0 Hypertensive heart and chronic kidney disease with heart failure and stage 1 through stage 4 chronic kidney disease, or unspecified chronic kidney disease; J44.1 Chronic obstructive pulmonary disease with (acute) exacerbation; J44.0 Chronic obstructive pulmonary disease with (acute) lower respiratory infection; N18.4 Chronic kidney disease, stage 4 (severe); E87.3 Alkalosis; E87.0 Hyperosmolality and hypernatremia; R65.10 Systemic inflammatory response syndrome (SIRS) of non-infectious origin without acute organ dysfunction; I35.0 Nonrheumatic aortic (valve) stenosis; E11.22 Type 2 diabetes mellitus with diabetic chronic kidney disease; I48.2 Chronic atrial fibrillation; M25.561 Pain in right knee; S30.1XXA Contusion of abdominal wall, initial encounter; I87.8 Other specified disorders of veins; E86.0 Dehydration; E87.6 Hypokalemia; X58.XXXA Exposure to other specified factors, initial encounter; D64.9 Anemia, unspecified; F03.90 Unspecified dementia, unspecified severity, without behavioral disturbance, psychotic disturbance, mood disturbance, and anxiety; T38.0X5A Adverse effect of glucocorticoids and synthetic analogues, initial encounter; D72.829 Elevated white blood cell count, unspecified; I25.10 Atherosclerotic heart disease of native coronary artery without angina pectoris; E66.9 Obesity, unspecified; Z68.32 Body mass index [BMI] 32.0-32.9, adult; Z90.49 Acquired absence of other specified parts of digestive tract; Z87.891 Personal history of nicotine dependence; Z95.0 Presence of cardiac pacemaker; Z95.5 Presence of coronary angioplasty implant and graft; Z79.52 Long term (current) use of systemic steroids; Z79.82 Long term (current) use of aspirin; Z79.899 Other long term (current) drug therapy; Z86.14 Personal history of Methicillin resistant Staphylococcus aureus infection; Y93.89 Activity, other specified; Y92.89 Other specified places as the place of occurrence of the external cause; Y99.8 Other external cause status